=== PATIENT | male | born 1945 | race Caucasian/White ===

== ENCOUNTER → 2017-06-24 | Outpatient (CLI) | payer OTHER ==
[~2017-06-24] MED LIST: ANTACID PO; ATORVASTATIN CA40 MG PO; NABUMETONE 500500 M1 PO; NORCO 10-325 T1 EACH PO; NORVASC10 MG PO; PERCOCET 7.5-31 EAC1 PO; PERCOCET 7.5-31 EACH PO; TOPROL XL50 MG PO
--- NOTE | 2017-06-26 09:59 | PAINCON ---
[address] [address] PAIN MANAGEMENT CONSULTATION Name: CHARANJIT CHRISTOPHER SR [id number] Admission: 06/24/17 Attend Phys: Sadie Jones Discharge: Date of : 49 Report #: [id number] THIS REPORT FOR: //name// CC: FAM unknown Rod Reno DATE OF SERVICE: 06/24/2017 The patient is a 72-year-old gentleman being treated for chronic pain secondary to multiple surgeries on left ankle. He has chronic pain requiring high risk complex medication management. He has been stable on Percocet 7.5/325 up to 3 a day. He returns to pain clinic today noting pain is about 8 on Visual Analog Scale. He notes that cold weather has made pain a little bit worse, but otherwise he is participating in activities of daily living. Again, rates his pain an 8 on Visual Analog Scale. PHYSICAL EXAMINATION: VITAL SIGNS: Shows 5 feet 9 inches, 184 pound gentleman, BMI is 27.3 kilograms per meter squared. Blood pressure 150/83, pulse 103, respirations 16. NEUROLOGIC: Alert to person, place and time, judged to be a reasonable historian. Rises from chair using armrest, modestly antalgic gait. Ankle flexion and extension is limited to about 30 degrees. Significantly impacted compared to the contralateral right ankle, which has full range of motion. We reviewed the fact that opiate medications are being used to provide analgesia adequate to support activities of daily living, not attempting to achieve a specific pain score on the 0-10 Visual Analog Scale. The current opiate medications are providing sufficient analgesia to allow the patient to participate in activities of daily living. The patient is not exhibiting any aberrant behavior suggestive of drug diversion. The patient is not having any adverse reactions to medications. The patient is not suffering from daytime somnolence or mental acuity changes. The patient is managing opiate-induced constipation with appropriate egxb-oeb-rlfiusg agents and dietary considerations. The patient was counseled on concern for caution with operating a motor vehicle while using opiate medications. A physical exam was performed and the patient's functional status was evaluated. All patients with back pain were advised against the bed rest greater than 4 days and were advised to return to normal activities. Pain score assessment was noted and the treatment plan was reviewed with the patient. All current medications, both prescribed and OTC were reviewed and reconciled on the electronic medical record. Tobacco screening was accomplished and smoking cessation was advised when indicated. BMI was noted and diet/exercise modification was recommended for all patients [place] [address] PAIN MANAGEMENT CONSULTATION Name: CHARANJIT CHRISTOPHER [facility] [id number] Admission: 06/24/17 Attend Phys: Sadie Jones Discharge: Date of : 49 Report #: [id number] parameters. I reviewed with the patient today their responsibilities to safeguard prescription medications, reviewed their responsibility to utilize medications only as prescribed by the physician. They are to seek and receive pain medications only from 1 physician group ( [facility]). They are to use 1 pharmacy and keep the clinic informed if they change pharmacies. Their responsibilities include making followup visits in a timely fashion and to avoid abrupt discontinuation of medication usage. Their responsibilities further include bringing their medications (bottles from the pharmacy with residual pills) to the visit for possible confirmation of pill counts and the patient understands it is their responsibility to submit to random drug screens to ensure both that the medications prescribed are present, and that no other controlled substances are present. All prescriptions provided today were generated electronically. ASSESSMENT: Chronic left ankle pain requiring high risk complex medication management status post multiple surgeries. He is stable on baseline medication. Last random drug screen on 04/29/2017 was positive for prescribed medications. RECOMMENDATION: Continue Percocet 7.5/325 t.i.d. for breakthrough pain, encouraged lowest usage possible. Follow up in 2 months for reevaluation, will bring pills for pill count at that time. <ELECTRONICALLY SIGNED> By: Rod Reno DO 06/26/17 0959 [id number] Reno DO /shantell
== END ==
LOC: M.PC 02:33
DX: G89.29 Other chronic pain (principal); M25.571 Pain in right ankle and joints of right foot; Z79.899 Other long term (current) drug therapy; Z98.890 Other specified postprocedural states

== ENCOUNTER → 2017-08-19 | Outpatient (CLI) | payer OTHER ==
--- NOTE | 2017-08-26 07:59 | PAINCON ---
[facility] [address] [place] [address] PAIN MANAGEMENT CONSULTATION Name: CHARANJIT CHRISTOPHER SR [id number] Admission: 08/19/17 Attend Phys: Sadie Jones Discharge: Date of : 49 Report #: [id number] THIS REPORT FOR: //name// CC: FAM unknown Rod Reno DATE OF SERVICE: 08/19/2017 HISTORY OF PRESENT ILLNESS: The patient is a 72-year-old gentleman being treated for chronic pain syndrome status post multiple surgeries, right ankle, requiring complex medication management. Last seen in the pain clinic on 06/24/2017, continued on Percocet 7.5/325 up to 3 a day. Returns to the pain clinic today noting medication continues to provide sufficient analgesia to participate in activities of daily living. Uses a cane in the right hand nearly 100% of the time when ambulating. Prior random drug screen in April was positive for prescribed medications and no others. We reviewed the fact that opiate medications are being used to provide analgesia adequate to support activities of daily living, not attempting to achieve a specific pain score on the 0-10 Visual Analog Scale. The current opiate medications are providing sufficient analgesia to allow the patient to participate in activities of daily living. The patient is not exhibiting any aberrant behavior suggestive of drug diversion. The patient is not having any adverse reactions to medications. The patient is not suffering from daytime somnolence or mental acuity changes. The patient is managing opiate-induced constipation with appropriate zofd-hsd-enuxpsd agents and dietary considerations. The patient was counseled on concern for caution with operating a motor vehicle while using opiate medications. A physical exam was performed and the patient's functional status was evaluated. All patients with back pain were advised against the bed rest greater than 4 days and were advised to return to normal activities. Pain score assessment was noted and the treatment plan was reviewed with the patient. All current medications, both prescribed and OTC were reviewed and reconciled on the electronic medical record. Tobacco screening was accomplished and smoking cessation was advised when indicated. BMI was noted and diet/exercise modification was recommended for all patients following outside normal parameters. I reviewed with the patient today their responsibilities to safeguard prescription medications, reviewed their responsibility to utilize medications only as prescribed by the physician. They are to seek and receive pain medications only from 1 physician group ( [facility]). They are to use 1 pharmacy and keep the clinic informed if they change pharmacies. Their responsibilities include making followup visits in a [place] [address] PAIN MANAGEMENT CONSULTATION Name: CHARANJIT CHRISTOPHER SR [facility]: [facility]#: [id number] Admission: 08/19/17 Attend Phys: Sadie Jones Discharge: Date of : 49 Report #: [id number] abrupt discontinuation of medication usage. Their responsibilities further include bringing their medications (bottles from the pharmacy with residual pills) to the visit for possible confirmation of pill counts and the patient understands it is their responsibility to submit to random drug screens to ensure both that the medications prescribed are present, and that no other controlled substances are present. All prescriptions provided today were generated electronically. PHYSICAL EXAMINATION: GENERAL: Shows a pleasant 72-year-old gentleman, BMI is 28.6 kilograms per meter squared. He does not use tobacco products. Subjective pain score is 7-8 on a VAS. VITAL SIGNS: Blood pressure 151/74, pulse 83, respirations 16, room air oxygen saturation 95%. MUSCULOSKELETAL: Rises from chair using the armrest. Limited range of motion, left ankle. Moderately antalgic gait. Using a cane in the right hand. ASSESSMENT: Symptomatic chronic pain syndrome, left ankle, status post multiple surgeries, requiring complex medication management, stable on baseline medication. RECOMMENDATION: Renew Percocet 7.5/325 up to 3 a day, taken the liberty of writing for 2 months of current medication. We did obtain a buccal random drug swab today. No aberrant behavior suggestive for drug diversion, simply complying with opiate consent to treat contract. <ELECTRONICALLY SIGNED> By: Rod Reno DO 08/26/17 0759 1408 [id number] Reno DO /nt
== END ==
LOC: M.PC 04:53
DX: M25.572 Pain in left ankle and joints of left foot (principal); G89.4 Chronic pain syndrome

== ENCOUNTER → 2017-10-14 | Outpatient (CLI) | payer OTHER ==
--- NOTE | 2017-10-19 08:35 | PAINCON ---
[address] [address] PAIN MANAGEMENT CONSULTATION Name: CHARANJIT CHRISTOPHER SR [id number] Admission: 10/14/17 Attend Phys: Sadie Jones Discharge: Date of : 49 Report #: [id number] THIS REPORT FOR: //name// CC: FAM unknown Rod Reno DATE OF SERVICE: 10/14/2017 PAIN CLINIC NOTE SUBJECTIVE: The patient is a pleasant 72-year-old gentleman being treated for chronic right ankle pain, status post multiple surgeries, requiring complex medication management. Last seen in pain clinic on 08/19/2017. Uses a cane in his right hand, utilizes Percocet for pain 7.5/325 up to 3 a day. We had reviewed the opiate consent to treat contract today. He has been a patient at our service since 10/2016. He notes medications provide sufficient analgesia to participate in activities of daily living though he still rates his pain as 7-8 on a VAS. Pain is exacerbated with standing, walking and bending. He has moderate decreased range of motion in the left ankle. PHYSICAL EXAMINATION: Shows 5 feet 9 inches, 189 pounds gentleman, BMI is 28.2 kg/m2, blood pressure 145/77, pulse 85, respirations are 18. Alert and oriented to person, place and time, judged to be a reasonable historian. Upper extremity strength is preserved. Rises from chair using armrest, modestly antalgic gait, again slight decreased range of motion of left ankle with ongoing hyperpathia, allodynia and pain in his ankle. We reviewed the fact that opiate medications are being used to provide analgesia adequate to support activities of daily living, not attempting to achieve a specific pain score on the 0-10 Visual Analog Scale. The current opiate medications are providing sufficient analgesia to allow the patient to participate in activities of daily living. The patient is not exhibiting any aberrant behavior suggestive of drug diversion. The patient is not having any adverse reactions to medications. The patient is not suffering from daytime somnolence or mental acuity changes. The patient is managing opiate-induced constipation with appropriate hkht-dbl-wmwfpvg agents and dietary considerations. The patient was counseled on concern for caution with operating a motor vehicle while using opiate medications. A physical exam was performed and the patient's functional status was evaluated. All patients with back pain were advised against the bed rest greater than 4 days and were advised to return to normal activities. Pain score assessment was noted and the treatment plan was reviewed with the patient. All current medications, both prescribed and OTC were reviewed and reconciled on the electronic medical record. Tobacco screening was accomplished and smoking cessation was advised when indicated. BMI was noted and diet/[place] [address] PAIN MANAGEMENT CONSULTATION Name: CHARANJIT CHRISTOPHER Room: [facility]#: [id number] Admission: 10/14/17 Attend Phys: Sadie Jones Discharge: Date of : 49 Report #: [id number] modification was recommended for all patients following outside normal parameters. I reviewed with the patient today their responsibilities to safeguard prescription medications, reviewed their responsibility to utilize medications only as prescribed by the physician. They are to seek and receive pain medications only from 1 physician group ([facility]). They are to use 1 pharmacy and keep the clinic informed if they change pharmacies. Their responsibilities include making followup visits in a timely fashion and to avoid abrupt discontinuation of medication usage. Their responsibilities further include bringing their medications (bottles from the pharmacy with residual pills) to the visit for possible confirmation of pill counts and the patient understands it is their responsibility to submit to random drug screens to ensure both that the medications prescribed are present, and that no other controlled substances are present. All prescriptions provided today were generated electronically. ASSESSMENT: Chronic pain, right ankle, status post multiple surgeries, requiring complex medication management, stable on Percocet 7.5/325 one tablet up to 3 times a day. We did attempt to obtain a random drug screen at last visit, though we cannot find it on the chart. The patient did not remember the procedure, hence we did order a buccal swab today. No aberrant behavior suggestive of drug diversion, simply complying with our opiate consent to treat contract. Prior opiate consent to treat contract had been signed back in 08/2013. Again, we did review this today. I did inform the patient that I will be leaving the practice. We will endeavor to find another physician to manage his current medication, noting that he has had a very reasonable opiate load while under 15 mg morphine equivalent (closer to 30 mg morphine equivalent daily). Follow up in 2 months for reevaluation. <ELECTRONICALLY SIGNED> By: Rod Reno DO 10/19/17 0835 1345 [id number] Reno DO /nt
== END ==
LOC: M.PC 02:59
DX: M25.571 Pain in right ankle and joints of right foot (principal); Z79.899 Other long term (current) drug therapy

== ENCOUNTER → 2017-12-09 | Outpatient (CLI) | payer OTHER ==
--- NOTE | 2017-12-10 07:27 | PAINCON ---
[facility] [address] [place] [address] PAIN MANAGEMENT CONSULTATION Name: CHARANJIT CHRISTOPHER SR [facility] [id number] Admission: 12/09/17 Attend Phys: Sadie Jones Discharge: Date of : 49 Report #: [id number] THIS REPORT FOR: //name// CC: FAM unknown Rod Reno DATE OF SERVICE: 12/09/2017 The patient is an extremely pleasant 72-year-old gentleman being treated for chronic right ankle pain, status post multiple surgeries, requiring complex medication management. Last seen in pain clinic 10/14/2017. Continues Percocet 7.5/325 three a day with ongoing efficacy. Last random drug screen at last visit was positive for prescribed medications. He returns to pain clinic today noting that medications continue to provide sufficient analgesia to participate in activities of daily living. However, he does have pain that escalates up to a 10 on a VAS with activity. PHYSICAL EXAMINATION: Shows pleasant 72-year-old gentleman, 5 feet 9 inches tall, 198 pounds, BMI is 28.2 kilograms per meter squared. Blood pressure 153/86, pulse 74, respirations of 16. Rises from chair using armrest, uses a cane in his right hand. Does have diminished range of motion of the left ankle, left plantar flexion and dorsiflexion. Side range of motion is dramatically limited. We reviewed the fact that opiate medications are being used to provide analgesia adequate to support activities of daily living, not attempting to achieve a specific pain score on the 0-10 Visual Analog Scale. The current opiate medications are providing sufficient analgesia to allow the patient to participate in activities of daily living. The patient is not exhibiting any aberrant behavior suggestive of drug diversion. The patient is not having any adverse reactions to medications. The patient is not suffering from daytime somnolence or mental acuity changes. The patient is managing opiate-induced constipation with appropriate edop-mdb-evrdrmi agents and dietary considerations. The patient was counseled on concern for caution with operating a motor vehicle while using opiate medications. A physical exam was performed and the patient's functional status was evaluated. All patients with back pain were advised against the bed rest greater than 4 days and were advised to return to normal activities. Pain score assessment was noted and the treatment plan was reviewed with the patient. All current medications, both prescribed and OTC were reviewed and reconciled on the electronic medical record. Tobacco screening was accomplished and smoking cessation was advised when indicated. BMI was noted and diet/exercise modification was recommended for all patients following outside normal parameters. I reviewed with the [place] [address] PAIN MANAGEMENT CONSULTATION Name: CHARANJIT CHRISTOPHER [facility] [id number] Admission: 12/09/17 Attend Phys: Sadie Jones Discharge: Date of : 49 Report #: [id number] prescription medications, reviewed their responsibility to utilize medications only as prescribed by the physician. They are to seek and receive pain medications only from 1 physician group ( [facility]). They are to use 1 pharmacy and keep the clinic informed if they change pharmacies. Their responsibilities include making followup visits in a timely fashion and to avoid abrupt discontinuation of medication usage. Their responsibilities further include bringing their medications (bottles from the pharmacy with residual pills) to the visit for possible confirmation of pill counts and the patient understands it is their responsibility to submit to random drug screens to ensure both that the medications prescribed are present, and that no other controlled substances are present. All prescriptions provided today were generated electronically. Long discussion with the patient today about therapeutic options. He has been stable on Percocet 7.5/325, but with increasing pain, we have elected to increase the dose slightly, we will increase from 90-105 tablets, i.e., 1 tablet 3 or 4 times a day. ASSESSMENT: Symptomatic chronic pain syndrome requiring complex medication management, status post multiple surgeries, left ankle, left ankle pain. RECOMMENDATIONS: Continue Percocet 7.5/325, limit #105 tablets for 30 days. I have taken the liberty of writing for prescriptions to release today and in 4 weeks, follow up with Dr. Niranjan Hines for ongoing management. <ELECTRONICALLY SIGNED> By: Rod Reno DO 12/10/17 0727 1407 [id number] Reno DO /nt
== END ==
LOC: M.PC 04:59
DX: M25.572 Pain in left ankle and joints of left foot (principal); G89.4 Chronic pain syndrome; Z79.899 Other long term (current) drug therapy

== ENCOUNTER → 2018-02-04 | Outpatient (CLI) | payer OTHER ==
--- NOTE | 2018-02-10 16:41 | PAINCON ---
[facility] [address] [place] [address] PAIN MANAGEMENT CONSULTATION Name: CHARANJIT CHRISTOPHER SR [facility] [id number] Admission: 02/04/18 Attend Phys: Jessica Hines MD Discharge: Date of : 49 Report #: [id number] THIS REPORT FOR: //name// CC: DIAZ Hines DATE OF SERVICE: 02/04/2018 CHIEF COMPLAINT: Chronic pain. The patient has been seen in the pain clinic by Dr. Rod Reno. HISTORY OF PRESENT ILLNESS: The patient is a 72-year-old gentleman who has been followed because of chronic right ankle pain. The patient has had multiple surgeries. He states that he was on a rough fell about 8 feet some time ago, fractured his ankle. Since that time, he has had quite a bit of pain and discomfort. He has lost movement and has about all lateral movement gone and about 60% of flexion and extension in his foot. He rates his pain as a 7/10 today. Notes that the pain can worsen. He is very sensitive to weather changes. Today is raining and has noted uptake in his pain. Walks with a cane. We would like to continue with his current medications of OxyContin 7.5 mg, which he takes 3-4 times daily. He states that he is taking his medications as prescribed. He has seen in the news the problems with use of opioid medications. He is aware that opioid medications can cause addiction. Also, they may lose their effectiveness secondary to development of tolerance. Feels his medications are working reasonably well. Do not have any bowel or bladder dysfunction. He is able to think clearly with their use. He has returned today for renewal of medication. ALLERGIES: PENICILLIN, BEE STINGS, TRAMADOL, ZOSYN, PIPERACILLIN. MEDICATIONS: OxyContin, oxycodone 7.5 mg 1-4 p.o. daily and Antacid. PAST MEDICAL HISTORY: Rheumatic fever, scarlet fever, hypertension, arthritis, stomach problems and elevated cholesterol. PAST SURGICAL HISTORY: Hernia repair, intestinal impaction, and left ankle after a fall. SOCIAL HISTORY: He is retired. REVIEW OF SYSTEMS: Generally good health, swelling of his ankle and feet. Wakes at night to urinate, joint pain, joint stiffness, difficulty walking. LABORATORY DATA: No new laboratory values are available [place] [address] PAIN MANAGEMENT CONSULTATION Name: CHARANJIT CHRISTOPHER SR Room: [facility]#: [id number] Admission: 02/04/18 Attend Phys: Jessica Hines MD Discharge: Date of : 49 Report #: [id number] PAIN CLINIC ASSESSMENT: 1. Left ankle osteoarthritic changes after fallen significant screws and plates in the ankle. 2. Height 5 feet 9 inches, weight 191 pounds, BMI is 28. 3. Vital signs: Blood pressure 157/79, heart rate 74, respiratory rate 16, room air saturation 96%, temperature 97.9. 4. Pain intensity 7/10. 5. Fall risk. The patient has not fallen in the last 3 months. 6. Blood thinner. The patient is not on a blood thinning medication. 7. Hypertension. The patient has not been treated for hypertension. 8. Opioid therapy greater than 6 weeks. The patient gets his opioid medications from one source[facility]. 9. Risk assessment tool. The patient is low for use of opioid medications. 10. Functional assessment tool. 11. Recreational drug use. The patient denies use of recreational drugs. 12. Tobacco: The patient denies use of tobacco. 13. Alcohol: The patient denies use of alcohol. PHYSICAL EXAMINATION: GENERAL: The patient is a well-developed, well-nourished white male, appears his stated age. He is alert and oriented x 3. Affect is appropriate. Speech is fluent. HEENT: Normocephalic, atraumatic. Extraocular eye muscles intact. Sclerae nonicteric. Mucous membranes are moist. NECK: Without JVD or adenopathy. LUNGS: Clear to auscultation. ABDOMEN: Positive bowel sounds. The patient without significant scoliosis, kyphosis or lordosis. The patient has pain and discomfort in the left ankle. Muscle strength to the left lower extremity 5-/5, right lower extremity 5/5 strength. The patient walks with an antalgic gait because of the pain and discomfort in his left leg. Uses a cane to help with ambulation, uses hands to get up from the seated position. IMPRESSION: 1. Chronic pain involving the left foot and ankle, status post fracture after a fall. 2. Rheumatic fever. 3. Scarlet fever. 4. Hypertension. 5. Arthritis. 6. Stomach problems. 7. Elevated cholesterol. RECOMMENDATIONS: We discussed treatment options with the patient. Risks and benefits of these medications were discussed. We will renew his medication for [address] [place] [address] PAIN MANAGEMENT CONSULTATION Name: CHARANJIT CHRISTOPHER SR Room: [facility]#: [id number] Admission: 02/04/18 Attend Phys: Jessica Hines MD Discharge: Date of : 49 Report #: [id number] the next 2 months. A script for oxycodone 7.5 mg 1 p.o. q.4-6h., total 105 tablets have been dispensed. The patient will call us if he has any problem with his medications. We would like to thank you for letting us participate in his care. We hope he continues to improve. <ELECTRONICALLY SIGNED> By: Jessica Hines MD 02/10/18 1641 1700 0301N. Niranjan Hines MD /nt
== END ==
LOC: M.PC 03:20
DX: M79.672 Pain in left foot (principal); G89.29 Other chronic pain; I10 Essential (primary) hypertension; E78.00 Pure hypercholesterolemia, unspecified; M19.90 Unspecified osteoarthritis, unspecified site; I00 Rheumatic fever without heart involvement; A38.9 Scarlet fever, uncomplicated

== ENCOUNTER → 2018-04-01 | Outpatient (CLI) | payer OTHER ==
--- NOTE | 2018-04-28 16:08 | PAINCON ---
[address] [address] PAIN MANAGEMENT CONSULTATION Name: CHARANJIT CHRISTOPHER SR Room: [facility] HeatherNeo#: [id number] Admission: 04/01/18 Attend Phys: Jessica Hines MD Discharge: Date of : 49 Report #: [id number] THIS REPORT FOR: //name// CC: DIAZ physician/PCP Jessica Hines DATE OF SERVICE: 04/01/2018 CHIEF COMPLAINT: Left foot and ankle pain. HISTORY OF PRESENT ILLNESS: The patient is a 73-year-old gentleman who has been followed in the Pain Clinic. He has a history of right ankle pain. He has had multiple surgeries. The patient injured it after falling through the roof of a building. At that time, he fractured his ankle. He has continued to have pain and discomfort. He has lost movement in the ankle. He has 60% flexion and extension in the foot. He rates the pain as 7-8 today. The weather has changed; it has gone from the 60s to 28. He continues to walk with his cane. He finds that OxyContin 7.5 mg three to four times daily is helpful. He has used the oxycodone provided by his pharmacy. This last formulation was different from that which he had gotten in the past. He felt that the last dosing was not as near as effective. He would like to continue with previous formulations of Percocet. We have called his pharmacy and they have given us numbers. The pill number by Sandi was quoted to us. We have written this on the prescription. Hopefully, he finds these medications more helpful. The patient has had some problems with his prostate. PSA studies have been ongoing. He has noticed an uptake in the PSA. He was felt to have prostate cancer at this juncture. He is scheduled to undergo treatment with possible placement of radiation seeds in the prostate in the next month or so. He has started hormone therapy. Overall, things are going reasonably well and he would like to have his medications renewed. ALLERGIES: PENICILLIN, BEE STINGS, TRAMADOL, ZOSYN, PIPERACILLIN. CURRENT MEDICATIONS: OxyContin, oxycodone 7.5 mg one to four tablets p.o. daily, antacid. PAIN CLINIC ASSESSMENT/PQRS: 1. Left ankle osteoarthritis with changes status post screws and plates in place in the ankle. 2. Rheumatoid arthritis: The patient is not being treated for rheumatoid arthritis. 3. Height 5 feet 9 inches, weight 192 pounds, BMI is 28. 4. Vital signs: Blood pressure is 161/75, heart rate 69, respiratory rate 18, room air saturation is 96%, temperature 97.8. 5. Pain intensity: 7-8/10[place] [address] PAIN MANAGEMENT CONSULTATION Name: CHARANJIT CHRISTOPHER Room: [facility]#: [id number] Admission: 04/01/18 Attend Phys: Jessica Hines MD Discharge: Date of : 49 Report #: [id number] 6. Fall risk: The patient has not fallen in the last 3 months. 7. Blood thinner: The patient is not on a blood thinning medication. 8. Hypertension: The patient is not being treated for hypertension. 9. Opioid therapy greater than 6 weeks: The patient receives his medications from one source, the Pain Clinic. 10. Functional assessment tool: Low for opioid use. 11. Recreational drug use: The patient denies use of recreational drugs. 12. Tobacco: The patient denies use of tobacco. 13. Alcohol: The patient denies use of alcoholic beverages. PHYSICAL EXAMINATION: GENERAL: The patient is a well-developed, well-nourished white male. He appears his stated age. He is alert and oriented x 3. Affect is appropriate. Speech is fluent. HEENT: Normocephalic, atraumatic. Extraocular eye muscles intact. Sclerae nonicteric. NECK: Without JVD or adenopathy. LUNGS: Clear to auscultation. ABDOMEN: Positive bowel sounds, nontender. MUSCULOSKELETAL: Without significant scoliosis, kyphosis, or lordosis. The patient has some pain and discomfort in the left ankle. He walks with use of a cane. Muscle strength on the left side is approximately 5-/5, right 5/5. The patient has antalgic gait. He complains of pain and discomfort in the ankle. He moves from the sitting to the standing position using his hands. IMPRESSION: 1. Chronic pain involving the left foot and ankle status post fracture after a fall through the roof of a building. 2. Rheumatic fever. 3. Scarlet fever. 4. Hypertension. 5. Arthritis. 6. Development of prostate cancer. 7. Elevated cholesterol. RECOMMENDATIONS: We discussed treatment options with the patient. At this juncture, he feels that the current Percocet tablets were not as efficacious. He has a capsule. Numbers are written on it. We have relayed those to the pharmacy. The patient has been encouraged to take a picture of these numbers so that he would have them available in the future. The patient also has been asked to take a picture of the pill. He can then check with the pharmacy before prior to leaving the pharmacy to ensure that he has one that he feels is most efficacious. He will undergo radiation treatment with seeds placed in the prostate in 04/2018. He will call us if [place] [address] PAIN MANAGEMENT CONSULTATION Name: CHARANJIT CHRISTOPHER Room: [facility]#: [id number] Admission: 04/01/18 Attend Phys: Jessica Hines MD Discharge: Date of : 47 Report #: [id number] We would like to thank you for letting us participate in his care. We hope he continues to improve. <ELECTRONICALLY SIGNED> By: Jessica Hines MD 04/28/18 1608 [id number]. Niranjan Hines MD /nt
== END ==
LOC: M.PC 05:28
DX: M25.572 Pain in left ankle and joints of left foot (principal); G89.29 Other chronic pain; I10 Essential (primary) hypertension; M19.90 Unspecified osteoarthritis, unspecified site; E78.5 Hyperlipidemia, unspecified; I00 Rheumatic fever without heart involvement; A38.9 Scarlet fever, uncomplicated; C61 Malignant neoplasm of prostate; Z79.899 Other long term (current) drug therapy

== ENCOUNTER → 2018-06-03 | Outpatient (CLI) | payer OTHER ==
[~2018-06-03] MED LIST changes: +DOXEPIN 10 MG C10 M1 PO
--- NOTE | ~2018-06-03 | PAINCON ---
[address] [address] PAIN MANAGEMENT CONSULTATION Name: CHARANJIT CHRISTOPHER SR Room: [facility] HeatherNeo#: [id number] Admission: 06/03/18 Attend Phys: Jessica Hines MD Discharge: Date of : 49 Report #: [id number] THIS REPORT FOR: //name// CC: DIAZ physician/PCP Jessica Hines ____ ____ DATE OF SERVICE: 06/03/2018 CHIEF COMPLAINT: Left ankle and foot pain. HISTORY: The patient is a 73-year-old gentleman, who has been followed in the pain clinic. He has history of right ankle pain. He has had multiple surgeries on the ankle. He was injured after falling off a roof. He continues to have pain, which is problematic. He has managed movement in his ankle. He notes about 60% flexion and extension of his foot. He rates his pain as an 8-10 in pain today. He has noted weather has changed, it is somewhat cold outside. He does walk and ambulate with use of a cane. He has been experiencing some new piercing, tingling, pain sensation, which radiates to his ankle. Sometimes these are problematic at night. He has his leg hanging off the table in certain positions. Sometimes the pain is so problematic and awakens him from sleep at night. Only able to sleep 2-3 hours before onset of this pain and discomfort. Overall, feels that things are about 40% better with use of his current medical regimen. He feels that the oxycodone has been beneficial. CURRENT MEDICATIONS: The patient is on OxyContin, oxycodone 7.5 mg 1 tablet-4 tablets p.o. daily, and acid. ALLERGIES: THE PATIENT IS ALLERGIC TO PENICILLIN, BEE STINGS, TRAMADOL, ZOSYN, AND PIPERACILLIN. PAIN CLINIC ASSESSMENT AND PQRS: 1. Left ankle osteoarthritis changes, status post screws and plates placed in his ankle. 2. Rheumatoid arthritis. The patient is not being treated for rheumatoid arthritis. 3. Pain score is 8/10. 4. Fall history: The patient has not fallen in the last 3 months. 5. Blood thinner. The patient is not on a blood thinning medication. 6. Hypertension. The patient is not being treated for hypertension. 7. Opioids greater than 6 weeks. The patient receives this medication from one source, the pain clinic. 8. Functional assessment tool, low for opioid use. 9. Recreational drug use. The patient denies use of recreational drugs. 10. Tobacco: The patient denies use of tobacco. 11. Alcohol: The patient [place] [address] PAIN MANAGEMENT CONSULTATION Name: CHARANJIT CHRISTOPHER SR [id number] Admission: 06/03/18 Attend Phys: Jessica Hines MD Discharge: Date of : 49 Report #: [id number] PHYSICAL EXAMINATION: GENERAL: The patient is a well-developed, well-nourished white male. He appears his stated age. He is alert and oriented x 3. His affect is appropriate. Speech is fluent. Height is 5 feet 9 inches, weight is 193 pounds, and BMI is 28.5. VITAL SIGNS: Blood pressure is 144/98, heart rate is 102, respiratory rate is 16, room air saturation is 96%, temperature is 98.0. HEENT: Normocephalic, atraumatic. Extraocular eye muscles intact. Sclerae nonicteric. NECK: Without adenopathy or JVD. LUNGS: Clear to auscultation without rhonchi. ABDOMEN: Positive bowel sounds, nontender. MUSCULOSKELETAL: Without significant scoliosis, kyphosis, or lordosis. The patient has some pain and discomfort in the left ankle. He walks and uses a cane. Muscle strength in the left side is approximately 5-/5 and 5/5 on the right. The patient moves from a sitting to a standing position using his hands. IMPRESSION: 1. Chronic pain involving the left foot and ankle, status post fracture after a fall with instrumentation in the ankles. 2. History of rheumatic fever. 3. History of scarlet fever. 4. Hypertension. 5. Arthritis. 6. Development of prostatic cancer. 7. Elevated cholesterol. RECOMMENDATIONS: We have discussed treatment options with the patient. At this juncture, we will continue with his current medication regimen. He feels that this medications are helpful and enable him to be active and he is able to engage in activities of daily living. The patient will call if he has any concerns. A script for all of his medications have been provided. The patient will keep his medications in a guarded area. We have discussion about opioids and their benefits as well as the risks, these could include but are not limited to development of addiction as well as less efficacy from the medication secondary to development of tolerance. We would like to thank you for letting us to participate in his care. We hope he continues to improve. By: [id number]. Niranjan Hines MD /SIMEON
== END ==
LOC: M.PC 01:39
DX: M25.572 Pain in left ankle and joints of left foot (principal); M79.672 Pain in left foot; I10 Essential (primary) hypertension; M19.90 Unspecified osteoarthritis, unspecified site; E78.00 Pure hypercholesterolemia, unspecified; C61 Malignant neoplasm of prostate; Z86.19 Personal history of other infectious and parasitic diseases; W19.XXXA Unspecified fall, initial encounter

== ENCOUNTER → 2018-08-05 | Outpatient (CLI) | payer OTHER ==
--- NOTE | ~2018-08-05 | PAINCON ---
[address] [address] PAIN MANAGEMENT CONSULTATION Name: CHARANJIT CHRISTOPHER SR Room: [facility] DannielleAugustine#: [id number] Admission: 08/05/18 Attend Phys: Jessica Hines MD Discharge: Date of : 49 Report #: [id number] THIS REPORT FOR: //name// CC: Christiano Hines DATE OF SERVICE: 08/05/2018 CHIEF COMPLAINT: Here for medication renewal. HISTORY OF PRESENT ILLNESS: The patient is a 73-year-old gentleman. He has been followed in the Pain Clinic. He has a history of right ankle pain. As you may recall, he has had multiple surgeries on his ankle. He injured it after falling off a roof. Pain continues to be problematic. He has been treated with medical management using opioid medication and complex medical management. He feels his pain overall is about 30-40% improved with his current medication today. He continues to walk with a cane. He notes that because of the cold weather that we have been experiencing and the waxing and waning of the weather pattern, he has noticed some increasing pain in his ankle. Describes it as problematic when he is standing, walking as well as with doing regular activities. He feels that his medication as well as heat are beneficial. He has had no complications with his medications. He has used doxepin and feels that it is working well, but only takes it on occasion. He has returned today with the desire to undergo renewal of his medications. ALLERGIES: PENICILLIN, BEE STINGS, TRAMADOL, ZOSYN, PIPERACILLIN. CURRENT MEDICATIONS: OxyContin, oxycodone 7.5 mg 1 tablet p.r.n. as directed. PAIN CLINIC ASSESSMENT AND PQRS: 1. Left ankle osteoarthritis with changes, status post screws and plate placements in the ankle. The patient is not being treated for rheumatoid arthritis. 2. Height 5 feet 9 inches, weight 175 pounds, BMI is 25.9. 3. Vital signs: Blood pressure 145/81, heart rate 90, respiratory rate 16, room air saturation 97%, temperature 98.1. 4. Pain intensity: /10. 5. Fall risk: The patient has not fallen in the last 3 months. 6. Blood thinner: The patient is not on a blood thinning medication. 7. Hypertension: The patient is not being treated for hypertension. 8. Opioids greater than 6 weeks: The patient receives his medication from one source from pain Clinic. 9. Risk assessment tool: Low for opioid use. 10. Recreational drug use: The patient denies use of recreational drugs. 11. Tobacco: The patient denies use of tobacco. 12. Alcohol: The patient [place] [address] PAIN MANAGEMENT CONSULTATION Name: CHARANJIT CHRISTOPHER SR Room: [facility]#: [id number] Admission: 08/05/18 Attend Phys: Jessica Hines MD Discharge: Date of : 49 Report #: [id number] PHYSICAL EXAMINATION: GENERAL: The patient is a well-developed, well-nourished, white male. Appears his stated age. He is alert and oriented x 3. His affect is appropriate. Speech is fluent. HEENT: Normocephalic, atraumatic. Extraocular eye muscles are intact. Sclerae nonicteric. Mucous membranes are moist. NECK: Without adenopathy or JVD. LUNGS: Clear to auscultation without rhonchi or rales. ABDOMEN: Bowel sounds present, nontender. MUSCULOSKELETAL: Without significant scoliosis, kyphosis or lordosis. The patient does have pain and discomfort in the left ankle. He walks with a cane. He has an antalgic gait. He rates his left-sided muscle strength as 5-/5 and on the right 5/5. The patient uses hands to go from a sitting position to a standing position before ambulating. IMPRESSION: 1. Chronic pain involving the left ankle and foot, status post fracture with instrumentation in the ankle. 2. History of rheumatic fever. 3. History of scarlet fever. 4. Hypertension. 5. Arthritis. 6. Development of prostate cancer. 7. Elevated cholesterol. RECOMMENDATIONS: We discussed treatment options with the patient. At this juncture, we will continue with his current medications. A script for his oxycodone 7.5 mg 1 p.o. t.i.d./q.i.d. have been written, 105 tablets have been written for. The patient will also continue with ____ 4 weeks from now with an additional script that has been provided. He will call us if he has any concerns. We would like to thank you for letting us participate in his care. We hope he continues to improve. By: [id number]. Niranjan Hines MD /shantell
== END ==
LOC: M.PC 09:40
DX: S82.892D Other fracture of left lower leg, subsequent encounter for closed fracture with routine healing (principal); G89.29 Other chronic pain; M19.90 Unspecified osteoarthritis, unspecified site; I10 Essential (primary) hypertension; E78.00 Pure hypercholesterolemia, unspecified; C61 Malignant neoplasm of prostate; Z86.19 Personal history of other infectious and parasitic diseases; Z79.899 Other long term (current) drug therapy; X58.XXXD Exposure to other specified factors, subsequent encounter

== ENCOUNTER → 2018-09-30 | Outpatient (CLI) | payer OTHER ==
--- NOTE | 2018-10-01 13:10 | PAINCON ---
[address] [address] PAIN MANAGEMENT CONSULTATION Name: CHARANJIT CHRISTOPHER SR Room: [facility] DannielleAugustine#: [id number] Admission: 09/30/18 Attend Phys: Jessica Hines MD Discharge: Date of : 49 Report #: [id number] THIS REPORT FOR: //name// CC: Christiano Hines DATE OF SERVICE: 09/30/2018 CHIEF COMPLAINT: Chronic ankle pain. HISTORY: The patient is a 73-year-old gentleman who has been followed in the Pain Clinic. As you recall, he has a left foot problem. He has a plate in his left foot. Has had pain and discomfort, which has been quite problematic. He finds that his medications of oxycodone and OxyContin are helpful. Feels that overall his pain is about 30-40% improved with his current medical regimen. He injured his ankle some time ago. As you may recall, he fell off a roof. He has continued to have pain and walks with his cane. Notes that the cold weather waxes and wanes and causes worsening of his pain. As the weather pattern this spring has changed becoming warm and vacillating back and forth to cold, he has noticed the worsening of his pain as well. Rates his pain as an 8/10 today. He has noted some increased pain and discomfort in his hands. He feels that he may have some osteoarthritis or rheumatoid arthritis developing in his hands. ALLERGIES: PENICILLIN, BEE STINGS, TRAMADOL, ZOSYN, PIPERACILLIN. CURRENT MEDICATIONS: Percocet 7.5 mg 1 p.o. t.i.d. to q.i.d., doxepin 10 mg at bedtime, the patient recently started on metoprolol for elevated heart rate in the 120s. PAIN CLINIC ASSESSMENT/PQRS: 1. Left ankle pain status post screws and plate placement with chronic pain. The patient has not been treated for rheumatoid arthritis. 2. Height 5 feet 9 inches, weight 179 pounds, BMI is 26.5. 3. Blood pressure 149/77, heart rate 72, respiratory rate 16, room air saturation 96%, temperature is 98.0. 4. Pain intensity 8/10. 5. Fall history: The patient has not fallen in the last 3 months. 6. Blood thinner. The patient is not on a blood thinning medication. 7. Hypertension. The patient is not being treated for hypertension, but is taking metoprolol to help with heart rate. 8. Opioids greater than 6 weeks. The patient receives medications from one source, the pain clinic. 9. Risk assessment tool, low for opioid use. 10. Recreational drug use. The patient denies use of recreational drugs. 11. Tobacco: The patient denies use of tobacco. 12. Alcohol: The patient denies [place] [address] PAIN MANAGEMENT CONSULTATION Name: CHARANJIT CHRISTOPHER SR Room: [facility]#: [id number] Admission: 09/30/18 Attend Phys: Jessica Hines MD Discharge: Date of : 49 Report #: [id number] PHYSICAL EXAMINATION: GENERAL: The patient is a well-developed, well-nourished white male. Appears his stated age. He is alert and oriented x 3. His affect is appropriate. Speech is fluent. HEENT: Normocephalic, atraumatic. Extraocular eye muscles are intact. Sclerae nonicteric. Mucous membranes are moist. NECK: Without adenopathy or JVD. LUNGS: Clear to auscultation without rhonchi or rales. ABDOMEN: Nontender. Bowel sounds are present. MUSCULOSKELETAL: Upper extremity muscle strength 5/5 for the major muscle groups in the upper extremity. The patient has pain and discomfort down his left ankle. Walks with use of a cane. Has an antalgic gait. Muscle strength on the right is 5/5 and 5-/5 for the left lower extremity. He uses hands go from sitting to a standing position before ambulating. IMPRESSION: 1. Chronic pain involving the left ankle, status post fracture with instrumentation of his ankle -- the patient fell from a roof number of years ago. 2. History of rheumatic fever. 3. History of scarlet fever. 4. Hypertension. 5. Arthritis. 6. Development of prostate cancer. 7. Elevated cholesterol. 8. Elevated heart rate, treated with metoprolol recently. RECOMMENDATIONS: We discussed treatment options with the patient. Risks and benefits of opioid medications have been described. We have explained to the patient the possibility of development of addiction. Also, the less effectiveness of opioids over a period of time secondary to development of tolerance. He feels his medications are working reasonably well. He is taking them as prescribed. He is not having any concerns or complications. He has returned today with a desire to renew his medications. A script for his medications of OxyContin 7.5 mg 1 p.o. q.i.d. to t.i.d. have been written, #105 tablets have been provided. A second month of medication has been allocated as well. We would like to thank you for letting us participate in his care. We hope he continues to improve. <ELECTRONICALLY SIGNED> By: Jessica Hines MD 10/01/18 [id number]. Niranjan Hines MD /shantell
== END ==
LOC: M.PC 05:12
DX: G89.29 Other chronic pain (principal); M25.572 Pain in left ankle and joints of left foot; I10 Essential (primary) hypertension; M19.90 Unspecified osteoarthritis, unspecified site; E78.00 Pure hypercholesterolemia, unspecified; Z88.0 Allergy status to penicillin; Z88.8 Allergy status to other drugs, medicaments and biological substances; Z91.030 Bee allergy status; Z79.899 Other long term (current) drug therapy; Z79.891 Long term (current) use of opiate analgesic

== ENCOUNTER → 2018-11-18 | Outpatient (CLI) | payer OTHER ==
[~2018-11-18] MED LIST changes: +STOOL SOFTENER1 EAC2 PO; +TOPROL XL25 MG PO
--- NOTE | ~2018-11-18 | PAINCON ---
[facility] [address] [place] [address] PAIN MANAGEMENT CONSULTATION Name: CHARANJIT CHRISTOPHER SR Room: [facility] SONIA HeatherNeo#: [id number] Admission: 11/18/18 Attend Phys: Jessica Hines MD Discharge: Date of : 47 Report #: [id number] THIS REPORT FOR: //name// CC: Christiano Hines DATE OF SERVICE: 11/18/2018 CHIEF COMPLAINT: "Here for medication renewal because some pain in the left foot and ankle." FOLLOWUP HISTORY: The patient is a 73-year-old gentleman. As you recall, he has been followed in the pain clinic for some time. He has pain, which is chronic. This involves in his left foot. He rates the pain as a 7-8 at this point. He does note some occasional swelling. Today is more swollen than yesterday, but less than others. He states it is sometimes swelling size of a grapefruit. That is when his pain is 10/10. He rates his pain as a 7-8 at this point. He continues to exercise by walking around his property. He has no real change in the pain. As you recall, he has had a fusion of the ankle. He injured it when he fell from a roof years ago. He does walk with a cane. He has noted that the weather pattern, which has been rainy barometric pressure has been oscillating back and forth have all increased his pain and discomfort. He feels his medications are working reasonably well. He keeps his medications in a guarded area. They do not cause any problem with his sensorium. He has not fallen. ALLERGIES: PENICILLIN, BEE STINGS, TRAMADOL, ZOSYN, AND PIPERACILLIN. CURRENT MEDICATIONS: Percocet 7.5 mg t.i.d. to q.i.d., doxepin 10 mg at bedtime. The patient is using metoprolol to help control heart rate. PAIN CLINIC ASSESSMENT: 1. Rest Risk assessment tool. 2. Left ankle pain status post screws and plates with osteoarthritic changes. 3. The patient has not been treated for rheumatoid arthritis. 4. Height 5 feet 9 inches, weight 182 pounds, BMI is 26.8. 5. Vital Signs: Blood pressure 134/70, heart rate 73, respiratory rate 16, room air saturation 95%, temperature 97.9. 6. Pain intensity 8/10. 7. Fall history: The patient has not fallen in the last 3 months. 8. Blood thinner. The patient is not on a blood thinning medication. 9. Hypertension. The patient is not being treated for hypertension, but use metoprolol to help control heart rate. 10. Opioid greater than 6 weeks. The patient has received medication through the pain clinic. 11. Risk assessment tool [place] [address] PAIN MANAGEMENT CONSULTATION Name: CHARANJIT CHRISTOPHER Room: [facility]#: [id number] Admission: 11/18/18 Attend Phys: Jessica Hines MD Discharge: Date of : 47 Report #: [id number] 12. Recreational drug use: The patient denies. 13. Tobacco: The patient denies use of tobacco. 14. Alcohol: The patient denies use of alcoholic beverages. PHYSICAL EXAMINATION: GENERAL: The patient is a well-developed, well-nourished white male. Appears his stated age. He is alert and oriented x 3. His affect is appropriate. Speech is fluent. HEENT: Normocephalic, atraumatic. Extraocular eye muscles intact. Sclerae nonicteric. Mucous membranes are moist. NECK: Without adenopathy or JVD. HEART: Regular rate. History of tachycardia. LUNGS: Clear to auscultation. ABDOMEN: Nontender. Bowel sounds present. MUSCULOSKELETAL: Strength in the upper extremity judged to be 5-/5 for the major muscle groups in the upper extremity. He has pain in his left ankle. This is fused. Walks with use of a cane. Note some swelling in the ankle. He states that when it gets the size of a grapefruit, pain is 10/10. Today, as he feels it is about 30% swollen. He use his hands go from sitting to a standing position before ambulating. IMPRESSION: 1. Chronic left ankle pain, status post fracture with instrumentation and screws, status post fall from a roof many years ago. 2. History of rheumatic fever. 3. History of scarlet fever. 4. Hypertension. 5. Arthritis. 6. Development of prostate cancer. 7. Elevated cholesterol. 8. Elevated heart rate, treat him with metoprolol. RECOMMENDATIONS: We discussed treatment options with the patient. At this juncture, we will continue with his medications. He feels that the medications are helpful. We have had conversations regarding use of opioid medications. We have discussed at 70,000 people last year as a result of opioid use. We have also discussed the possible complications of opioid use. For some patient that may cause dependency. The patient does not feel that he is having any problems with his medications or dependency problems. He does not have any withdrawals. He has taken the medication as prescribed. We have discussed that long-term use of this medication may become less effective secondary to development of tolerance. Overall, things are going reasonably well. He feels his medications are working well. A script for his medications of oxycodone 7.5 mg 1 p.o. q.i.d. have been written. The patient will also continue with the doxepin. We will continue with the patient's medication management of chronic pain with the complex medical regimen that he is on. He will call us if he has [address] [place] [address] PAIN MANAGEMENT CONSULTATION Name: CHARANJIT CHRISTOPHER Room: [facility]#: [id number] Admission: 11/18/18 Attend Phys: Jessica Hines MD Discharge: Date of : 47 Report #: [id number] any concerns. We would like to thank you for letting us participate in his care. We hope he continues to improve. By: [id number]. Niranjan Hines MD /shantell
== END ==
LOC: M.PC 05:30
DX: Z76.0 Encounter for issue of repeat prescription (principal); C61 Malignant neoplasm of prostate; M25.572 Pain in left ankle and joints of left foot; I10 Essential (primary) hypertension; M19.90 Unspecified osteoarthritis, unspecified site; E78.00 Pure hypercholesterolemia, unspecified; Z79.899 Other long term (current) drug therapy

== ENCOUNTER → 2019-01-20 | Outpatient (CLI) | payer OTHER ==
[~2019-01-20] MED LIST changes: +MEDROLDOSEPACK PO
--- NOTE | ~2019-01-20 | PAINCON ---
[facility] [address] [place] [address] PAIN MANAGEMENT CONSULTATION Name: CHARANJIT CHRISTOPHER SR Room: [facility] HeatherNeo#: [id number] Admission: 01/20/19 Attend Phys: Jessica Hines MD Discharge: Date of : 47 Report #: [id number] THIS REPORT FOR: //name// CC: Christiano Hines DATE OF SERVICE: 01/20/2019 CHIEF COMPLAINT: "Left knee pain has gotten significantly worse." HISTORY: The patient is a 73-year-old gentleman who has been followed in the Pain Clinic because of chronic pain. Has pain, which involves his left foot. He rates his pain today as a 10/10. He ran out of medications about 4 days ago. He has noted some swelling in his left knee. He has a cane, which he uses to ambulate. Pain has been so problematic in his left leg that he is now walking with a crutch. As you may recall, he has had a fusion of his ankle. He injured it when he fell from the roof number of years ago. Notes that the weather pattern has changed somewhat. He feels that his hip on the left side and hip and knee are problematic. He has returned today for renewal of his medications. He feels that the oxycodone has been helpful. He was taking 105 tablets. He states that this provided him with about 3-1/2 tablets per day. At this juncture, the pain is so problematic, he would like to increase it to 4 tablets to help with the pain with his ability to cope with the discomfort. ALLERGIES: PENICILLIN, BEE STINGS, TRAMADOL, ZOSYN, AND PIPERACILLIN. CURRENT MEDICATIONS: Percocet 7.5 mg 1 p.o. q.i.d., doxepin 10 mg at bedtime. The patient is using metoprolol to help control his heart rate. Docusate b.i.d., and Antacid 1 tablet daily. PAIN CLINIC ASSESSMENT/PQRS: 1. The patient has some orthopedic changes involving his left ankle. Has pain and discomfort in the left knee. 2. Height 5 feet 9 inches, weight 195 pounds, BMI is 28.9. 3. Vital Signs: Blood pressure 114/66, heart rate 68, respiratory rate 18, room air saturation 98%, and temperature 97.7. 4. Pain intensity, 10/10. 5. Fall risk. The patient has not fallen in the last 3 months. He is walking with the use of a crutch instead of a cane. 6. Blood thinner. The patient is not on a blood thinning medication. 7. Hypertension. The patient is not being treated for hypertension. 8. The patient is being treated for heart rate with metoprolol. 9. Opioids greater than 6 weeks. The patient receives medication through one source the Pain Clinic. 10. Risk assessment tool, [place] [address] PAIN MANAGEMENT CONSULTATION Name: CHARANJIT CHRISTOPHER SR [facility] [id number] Admission: 01/20/19 Attend Phys: Jessica Hines MD Discharge: Date of : 47 Report #: [id number] 11. Recreational drug use. The patient denies use of recreational drugs. 12. Tobacco: The patient denies use of tobacco. 13. Alcohol: The patient denies frequent use of alcoholic beverages. PHYSICAL EXAMINATION: GENERAL: The patient is a well-developed, well-nourished white male. Appears his stated age. He is alert and oriented x 3. His affect is appropriate. Speech is fluent. HEENT: Normocephalic, atraumatic. Extraocular eye muscles intact. Sclerae nonicteric. Mucous membranes are moist. NECK: Without adenopathy or JVD. HEART: Regular rate. History of tachycardia. LUNGS: Clear to auscultation. ABDOMEN: Nontender. Bowel sounds present. MUSCULOSKELETAL: Without significant scoliosis, kyphosis or lordosis. Upper extremity muscle strength judged to be 5/5 for the major muscle groups. The patient has some pain in his left ankle. Notes some swelling and perception in his left knee. Has pain and discomfort with moving it through its range of motion. Has perception that is swollen. Uses hands to go from a sitting to a standing position before ambulating. IMPRESSION: 1. Chronic left ankle pain, status post fracture and instrumentation with screws ? the patient fell from a roof many years ago. 2. History of rheumatic fever. 3. History of scarlet fever. 4. Hypertension. 5. Arthritis. 6. Development of prostate cancer. 7. Elevated cholesterol. 8. Elevated heart rate, treated with metoprolol. RECOMMENDATIONS: We discussed treatment options with the patient. At this juncture, we will continue with his opioid medications. The patient states that his pain is quite problematic. He did ran out of medications about 4 days ago. He recounts that the pain has increased since he has ran out of medications. He now rates it as a 10/10. He has been walking with a crutch. He has not felt stable with using a cane. He feels that his pain is better when he is able to offload more of his weight onto the crutch. Has some pain in his left hip as well as the knee. He is not sure why the knee is so problematic. We will have the patient try a Medrol Dosepak. He will take this as prescribed. The left knee does not appear to be infected. It is cool to touch. He does note some soreness in this area with manipulation of movement of the patella. We will increase the patient's oxycodone to 7.5 mg 1 p.o. q.i.d. He was getting 105 tablets. We will increase this to 120. He will continue with the doxepin. He will give this medication a try and note its efficacy. [place] [address] PAIN MANAGEMENT CONSULTATION Name: CHARANJIT CHRISTOPHER Room: [facility]#: [id number] Admission: 01/20/19 Attend Phys: Jessica Hines MD Discharge: Date of : 47 Report #: [id number] has any problems with it. We would like to thank you for letting us participate in his care. We hope he continues to improve. By: [id number]. Niranjan Hines MD /nt
== END ==
LOC: M.PC 05:12
DX: M25.562 Pain in left knee (principal); M25.572 Pain in left ankle and joints of left foot; M19.90 Unspecified osteoarthritis, unspecified site; I10 Essential (primary) hypertension; E78.00 Pure hypercholesterolemia, unspecified; I00 Rheumatic fever without heart involvement; A38.9 Scarlet fever, uncomplicated; C61 Malignant neoplasm of prostate; Z79.899 Other long term (current) drug therapy; Z98.890 Other specified postprocedural states; Z88.0 Allergy status to penicillin; Z88.8 Allergy status to other drugs, medicaments and biological substances; Z91.030 Bee allergy status; Z91.81 History of falling

== ENCOUNTER → 2019-03-17 | Outpatient (CLI) | payer OTHER ==
--- NOTE | 2019-04-06 09:09 | PAINCON ---
[facility] [address] [place] [address] PAIN MANAGEMENT CONSULTATION Name: CHARANJIT CHRISTOPHER SR [facility] [id number] Admission: 03/17/19 Attend Phys: Jessica Hines MD Discharge: Date of : 47 Report #: [id number] THIS REPORT FOR: //name// CC: Christiano Hines DATE OF SERVICE: 03/17/2019 CHIEF COMPLAINT: Pain in the left foot, ankle and knee. HISTORY: The patient is a 74-year-old gentleman who has been followed in the Pain Clinic because of chronic pain. As you may recall, he continues to have pain, which is quite problematic in his left foot. He does walk with the use of a cane. Rates his pain as an 8/10 today. He has had his ankle fused. He injured his leg a number of years ago after falling from a roof. He is having some left shoulder pain as well. He denies any new trauma to that area. He feels that his medications of oxycodone have been helpful. He has undergone a Medrol Dosepak regimen. He found that that was somewhat helpful, but continues to have pain and discomfort. Notes that there are changes, increased pain with changes in weather. Notes that cold temperatures, walking and standing can exacerbate his discomfort. He is wearing a copper bracelet or brace on his left knee. ALLERGIES: PENICILLIN, BEE STINGS, TRAMADOL, ZOSYN, PIPERACILLIN. CURRENT MEDICATIONS: Percocet 7.5 mg 1 p.o. q.i.d., doxepin 10 mg at bedtime, metoprolol for heart rate, docusate b.i.d., and Antacid 1 tablet. PAIN CLINIC ASSESSMENT/PQRS: 1. The patient has some osteoarthritic changes involving his left ankle. Has pain and discomfort in his left knee. Height 5 feet 9 inches, weight 198 pounds, BMI is 29.3. 2. Vital Signs: Blood pressure 136/70, heart rate 74, respiratory rate 16, room air saturation 95%, temperature 97.9. 3. Pain intensity, 810. 4. Fall history. The patient has not fallen in the last 3 months. He continues to ambulate with use of his cane. 5. Blood thinner. The patient is not on a blood thinning medication. 6. Hypertension. The patient is not being treated for hypertension. 7. Opioids greater than 6 weeks. The patient receives medications through one source the Pain Clinic. 8. Risk assessment tool, low for opioid use. 9. Functional assessment tool. The patient denies use of recreational drugs. 10. Tobacco: The patient denies use of tobacco. 11. Alcohol. The patient denies frequent [place] [address] PAIN MANAGEMENT CONSULTATION Name: CHARANJIT CHRISTOPHER SR Room: [facility]#: [id number] Admission: 03/17/19 Attend Phys: Jessica Hines MD Discharge: Date of : 47 Report #: [id number] PHYSICAL EXAMINATION: GENERAL: The patient is a well-developed, well-nourished white male. Appears his stated age. He is alert and oriented x 3. His affect is appropriate. Speech is fluent. HEENT: Normocephalic, atraumatic. Extraocular eye muscles intact. Sclerae nonicteric. Mucous membranes are moist. NECK: Without adenopathy or JVD. HEART: Regular rate. History of tachycardia. LUNGS: Clear to auscultation. ABDOMEN: Nontender. MUSCULOSKELETAL: Upper extremity, the patient has some pain and discomfort in the left shoulder area. Also, has pain and discomfort in the left knee area. Has reasonable range of motion. Uses hands to go from a sitting to a standing position and walks using a cane with an antalgic gait. IMPRESSION: 1. Chronic left ankle pain, status post fracture and instrumentation with screws. The patient fell from a roof many years ago. 2. History of rheumatic fever. 3. History of scarlet fever. 4. Hypertension. 5. Arthritis. 6. Development of prostate cancer. 7. Elevated cholesterol. 8. Elevated heart rate, treated with metoprolol. RECOMMENDATIONS: We discussed treatment options with the patient. The patient has brought an x-ray series for his knee, left and right, and left shoulder. He asked that we review this. We did review the findings of the x-rays. We also used illustrations to inform the patient of the probable pathology involving his shoulder as well as his knee. A script for his medications of oxycodone 7.5 mg 1 p.o. t.i.d./q.i.d. have been rewritten. The patient is aware that opioid medications can be helpful with pain, but over the long-term can become less effective secondary to development of tolerance. The patient will also continue with doxepin at bedtime. He will call us if he has any concerns. We would like to thank you for letting us participate in his care. We hope he continues to improve. <ELECTRONICALLY SIGNED> By: Jessica Hines MD 04/06/19 [id number]. MD mahogany Kathleen
== END ==
LOC: M.PC 05:29
DX: G89.29 Other chronic pain (principal); M25.572 Pain in left ankle and joints of left foot; I10 Essential (primary) hypertension; M19.90 Unspecified osteoarthritis, unspecified site; E78.00 Pure hypercholesterolemia, unspecified; C61 Malignant neoplasm of prostate; I00 Rheumatic fever without heart involvement; A38.9 Scarlet fever, uncomplicated

== ENCOUNTER → 2019-05-19 | Outpatient (CLI) | payer OTHER ==
--- NOTE | ~2019-05-19 | PAINCON ---
[address] [address] PAIN MANAGEMENT CONSULTATION Name: CHARANJIT CHRISTOPHER SR Room: [facility] SONIA HeatherNeo#: [id number] Admission: 05/19/19 Attend Phys: Jessica Hines MD Discharge: Date of : 47 Report #: [id number] THIS REPORT FOR: //name// CC: Christiano Hines DATE OF SERVICE: 05/19/2019 The patient was seen on 05/19/2019 by Niranjan Hines. CHIEF COMPLAINT: Left foot, ankle and knee pain. HISTORY: The patient is a 74-year-old gentleman who has been followed in the pain clinic for quite a number of years. He has pain involving his left foot, ankle and his knee. He has used a brace on his left foot. States that brace at this juncture is nonfunctional. He has "worn it out." He has tried some lrei-xmo-nzjfyjr appliances and placed them in the shoe. They have not been helpful. He would like to have the Prosthetic Department remake his brace. He feels that the pain associated with his left foot is changing his gait. As a result of the change in gait, he has noticed an increased knee pain. He states that the orthotic that he bought [id number] does not fit his foot as well as the previous one did. He feels that his medications are helpful. He would like to have his medications renewed. He feels that the oxycodone medication is helpful. He is able to engage in activities he would not be able to without their use. As you may recall, he injured his foot many years ago. He fell from a roof. Notes that the change in weather has affected him. The colder weather has caused more problem with walking, standing, climbing stairs. ALLERGIES: PENICILLIN, BEE STINGS, TRAMADOL, ZOSYN, PENICILLIN, PIPERACILLIN. CURRENT MEDICATIONS: Percocet 7.5 mg 1 p.o. q.i.d., doxepin 10 mg at bedtime, metoprolol for heart rate, docusate b.i.d., antacid 1 tablet. PAIN CLINIC ASSESSMENT/PQRS: 1. The patient has arthritic changes involving his left ankle after a fall from a roof. He also has some discomfort in his left knee is associated with his changed gait. He is not being treated for rheumatoid arthritis. 2. Height 5 feet 9 inches, weight 202 pounds, BMI is 29.9. 3. Vital signs: Blood pressure 131/69, heart rate 75, respiratory rate 16, room air saturation is 96%, temperature 97.8. 4. Pain intensity 8/10. 5. Fall history: The patient has not fallen in the last 2 months. 6. Blood thinner. The patient is not on a blood thinning medication. 7. Hypertension. The patient is not being treated for hypertension. 8. Opioids greater than 6 weeks. The [place] [address] PAIN MANAGEMENT CONSULTATION Name: CHARANJIT CHRISTOPHER SR Room: [facility]#: [id number] Admission: 05/19/19 Attend Phys: Jessica Hines MD Discharge: Date of : 47 Report #: [id number] source, pain clinic. 9. Risk assessment tool, low for opioid. 10. Functional assessment tool, reviewed. 11. Recreational drug use: The patient denies use of tobacco. 12. Alcohol: The patient rarely drinks alcoholic beverages. PHYSICAL EXAMINATION: GENERAL: The patient is a well-developed, well-nourished white male. Appears his stated age. He is alert and oriented x 3. Affect is appropriate. Speech is fluent. HEENT: Normocephalic, atraumatic. Extraocular eye muscles intact. Sclerae nonicteric. Mucous membranes are moist. NECK: Without adenopathy or JVD. HEART: Regular rate. History of tachycardia. LUNGS: Clear to auscultation. ABDOMEN: Nontender. MUSCULOSKELETAL: The patient's upper extremity muscle strength judged to be 5-/5 for the major muscle groups in his right upper arm. He has some left shoulder discomfort. The patient without significant scoliosis, kyphosis or lordosis. Does walk with an antalgic gait. Has pain in the heel portion of his left foot. Has increased discomfort with standing and walking. Walks with a cane. IMPRESSION: 1. Chronic ankle pain, status post fracture and instrumentation with screws. The patient fell from a roof many years ago. 2. History of rheumatic fever. 3. History of scarlet fever. 4. Hypertension. 5. Arthritis. 6. Development of prostate cancer. 7. Elevated cholesterol. 8. Elevated heart rate, treated with metoprolol. RECOMMENDATIONS: We discussed treatment options with the patient. At this juncture, he feels medications are helpful. He takes them as prescribed. He is aware that opioid medications can become less effective as time goes on. Overall, these medications were helpful and he is able to engage in activities of daily living, he would not be able to without their use. He is aware that some patients can develop problems with addiction. He does not feel he is addicted. He has not shown any addictive behavior. He has taken the medication as prescribed. The patient has pain in his left heel. As a result of wearing out his prosthesis, he is ambulating differently. As a result of this change in his gait, he has noticed increased pain in his left knee. We would recommend the patient see a person who makes orthotics. Hopefully, he would be able to have a reproduction of his orthotic, so that [place] [address] PAIN MANAGEMENT CONSULTATION Name: CHARANJIT CHRISTOPHER SR Room: [facility]#: [id number] Admission: 05/19/19 Attend Phys: Jessica Hines MD Discharge: Date of : 47 Report #: [id number] discomfort. Hopefully, this will improve the gait and change his alignment with his knees, so he is not having as much discomfort. A script will be written for that. He states that he has had this brace provided at one facility. He will follow up with that facility and see what information needs to be provided in order for him to get the brace so that he can walk more normal, decrease the pain in his knee and increase his level of comfort. We would like to thank you for letting us participate in his care. We hope he continues to improve. By: [id number]. Niranjan Hines MD /nt
== END ==
LOC: M.PC 04:56
DX: M25.579 Pain in unspecified ankle and joints of unspecified foot (principal); M19.90 Unspecified osteoarthritis, unspecified site; I10 Essential (primary) hypertension; C61 Malignant neoplasm of prostate; E78.00 Pure hypercholesterolemia, unspecified; A38.9 Scarlet fever, uncomplicated

== ENCOUNTER → 2019-07-14 | Outpatient (CLI) | payer OTHER, MEDICAID ==
--- NOTE | 2019-07-29 08:24 | PAINCON ---
[address] [address] PAIN MANAGEMENT CONSULTATION Name: CHARANJIT CHRISTOPHER SR [id number] Admission: 07/14/19 Attend Phys: Jessica Hines MD Discharge: Date of : 47 Report #: [id number] THIS REPORT FOR: //name// cc: Physician not on staff Physician not on staff ~ THIS REPORT FOR: //name// CC: Christiano Hines Physician staff The patient was seen on 07/14/2019 by Niranjan Hines MD CHIEF COMPLAINT: Left foot pain, left ankle and knee pain. HISTORY: The patient is a 74-year-old gentleman who has been followed in the pain clinic because of chronic pain. He continues to suffer pain in the left foot, ankle and knee. He has returned today for renewal of his medications. He states that the medications are working reasonably well. He is not having any untoward problems with them. He rates his pain as 8/10 today. He has used a brace on his left foot. He feels that he may need to have another brace to replace one that is worn out. As you may recall, the pain he is experiencing is chronic in nature. It has been ongoing for a number of years. He fell from a roof. Weather change has caused some change in his pain score. Now he notes that his pain is worse when he is sitting, going from a sitting to a standing position, lifting or bending. ALLERGIES: PENICILLIN, BEE STINGS, TRAMADOL, ZOSYN, PENICILLIN, PIPERACILLIN. CURRENT MEDICATIONS: Percocet 7.5 mg 1 p.o. q.i.d., doxepin 10 mg at bedtime, metoprolol for heart rate, docusate b.i.d., and Antacid tablet. PAIN CLINIC ASSESSMENT/PQRS: 1. The patient has some arthritic changes involving his left ankle after a fall from the roof. He has had some discomfort in his left knee associated with his gait change. He is not being treated for rheumatoid arthritis. 2. Height 5 feet 9 inches, weight 203 pounds, BMI is 30. 3. Vital Signs: Blood pressure 135/68, heart rate 69, respiratory rate 16, room air saturation 97%, temperature 97.8. 4. Pain intensity is 8/10. 5. Fall risk. The patient has not fallen in the last 3 months. 6. Hypertension. The patient is not being treated for hypertension. 7. Blood thinner. The patient is not on a blood thinning medication. 8. Opioids greater than 6 weeks. The [facility]. 9. Risk assessment tool, [place] [address] PAIN MANAGEMENT CONSULTATION Name: CHARANJIT CHRISTOPHER SR Room: [facility]#: [id number] Admission: 07/14/19 Attend Phys: Jessica Hines MD Discharge: Date of : 47 Report #: [id number] 10. Functional assessment tool reviewed. 11. Recreational drug use: The patient denies. 12. Alcohol: The patient rarely drinks alcoholic beverages. PHYSICAL EXAMINATION: GENERAL: The patient is a well-developed, well-nourished white male who appears his stated age. He is alert and oriented x 3. His affect is appropriate. Speech is fluent. HEENT: Normocephalic, atraumatic. Extraocular eye muscles intact. Sclerae are nonicteric. Mucous membranes are moist. NECK: Without adenopathy or JVD. HEART: History of tachycardia. LUNGS: Clear to auscultation. ABDOMEN: Nontender. MUSCULOSKELETAL: The patient's upper extremity muscle strength judged to be 5-/5 for the major muscle groups in the right upper extremity. The patient has some left shoulder discomfort. The patient is without significant scoliosis, kyphosis or lordosis. The patient walks with an antalgic gait. He complains of pain in his heel and the portion of his left foot. Increased discomfort with walking and standing. He uses a cane. IMPRESSION: 1. Chronic ankle pain, status post fracture and instrumentation with screws in the past. The patient fell from a roof many years ago. 2. History of rheumatic fever. 3. History of scarlet fever. 4. Hypertension. 5. Osteoarthritis. 6. Development of prostate cancer. 7. Elevated cholesterol. 8. Elevated heart rate, treated with metoprolol. RECOMMENDATIONS: We discussed treatment options with the patient. Risks and benefits of opioid medications were discussed. He feels that the medications continue to be helpful. They enable him to engage in activities he probably would not be able to without significant discomfort. He feels that the medication continues to be efficacious. He is aware that opioid medications as time progresses can become less effective. He has not shown any signs of addictive behavior. He has taken the medication as prescribed. He does have pain in his left heel. He will consider getting another prosthesis to help with the pain. He will call us if he has any concerns. A script for his medications has been rewritten. He will continue with oxycodone 7.5 mg 1 tablet p.o. q.4-6 hours. He will call us if the need arises. [address] [place] [address] PAIN MANAGEMENT CONSULTATION Name: CHARANJIT CHRISTOPHER Room: [facility]#: [id number] Admission: 07/14/19 Attend Phys: Jessica Hines MD Discharge: Date of : 47 Report #: [id number] We would like to thank you for letting us participate in his care. We hope he continues to improve. <ELECTRONICALLY SIGNED> By: Jessica Hines MD 07/29/19 0824 1306 [id number]. Niranjan Hines MD /nt
== END ==
LOC: M.PC 09:40
PROVIDERS: Anesthesiology Pain Medicine
DX: M25.572 Pain in left ankle and joints of left foot (principal); M79.672 Pain in left foot; M25.562 Pain in left knee; I10 Essential (primary) hypertension; M19.90 Unspecified osteoarthritis, unspecified site; C61 Malignant neoplasm of prostate; E78.00 Pure hypercholesterolemia, unspecified; G89.29 Other chronic pain; Z86.19 Personal history of other infectious and parasitic diseases; Z88.0 Allergy status to penicillin; Z88.1 Allergy status to other antibiotic agents; Z88.8 Allergy status to other drugs, medicaments and biological substances; Z91.030 Bee allergy status; Z79.899 Other long term (current) drug therapy

== ENCOUNTER → 2019-09-08 | Outpatient (CLI) | payer OTHER ==
--- NOTE | 2019-09-09 09:01 | PAINCON ---
[address] [address] PAIN MANAGEMENT CONSULTATION Name: CHARANJIT CHRISTOPHER SR Room: [facility]#: [id number] Admission: 09/08/19 Attend Phys: Jessica Hiens MD Discharge: Date of : 47 Report #: [id number] THIS REPORT FOR: //name// cc: Krystal Trevino MD, Debra K. MD ~ THIS REPORT FOR: //name// CC: Krystal Hines DATE OF SERVICE: 09/08/2019 CHIEF COMPLAINT: Pain in the back, elbows, ankle. HISTORY: The patient is a 74-year-old gentleman. He has been followed in the pain clinic. He continues to suffer from pain involving a number of areas. He has foot pain involving his ankle. He also has knee pain. Today, there has been an increased discomfort in the area of his elbows on both sides and he has some generalized pain. He feels that his medications are helpful. He rates his pain as an 8/10 for the most part. He has taken the medication as prescribed. He does have a brace on his left foot. He fell from a roof many years ago. Since that time, he has continued to have pain in his ankle. He does walk with use of a cane. Activity such as sitting, going from a sitting to a standing position, lifting and bending can exacerbate his discomfort. He has taken seriously the COVID-19 suggestions of staying socially isolated. He was considering having a rotator cuff repair involving his left side that has been placed on hold given the cancellations of elective surgeries. He feels his medications are helpful and has returned today for renewal. ALLERGIES: PENICILLIN, BEE STINGS, TRAMADOL, ZOSYN, PIPERACILLIN. CURRENT MEDICATIONS: Percocet 7.5 mg one p.o. q.i.d., doxepin 10 mg at bedtime, metoprolol for heart rate, docusate b.i.d., antacid tablet. PAIN CLINIC ASSESSMENT AND PQRS: 1. The patient has some pain in his left ankle after a fall from a roof. The patient also has some pain and discomfort in his left shoulder. Possibility of rotator cuff surgery is imminent. The patient is not being treated for rheumatoid arthritis. 2. Height 5 feet 9 inches, weight 211 pounds, BMI 31. 3. Vital signs: Blood pressure 142/81, heart rate 75, respiratory rate 16, room air saturation 96%, temperature is 97.8. 4. Pain intensity is 8/10. 5. Fall risk. The patient has not fallen in the last 3 months. 6. Blood thinner. The patient is not on [place] [address] PAIN MANAGEMENT CONSULTATION Name: CHARANJIT CHRISTOPHER SR Room: [facility]#: [id number] Admission: 09/08/19 Attend Phys: Jessica Hines MD Discharge: Date of : 47 Report #: [id number] 7. Opioids greater than 6 weeks. The patient received medication from [facility], pain clinic. 8. Risk assessment tool, low for opioid use. 9. Functional assessment tool reviewed. 10. Recreational drug use. The patient denies. 11. Alcohol. The patient rarely drinks alcoholic beverages. PHYSICAL EXAMINATION: GENERAL: The patient is a well-developed, well-nourished white male. He appears his stated age. He is alert and oriented x 3. His affect is appropriate. Speech is fluent. HEENT: Normocephalic, atraumatic. Extraocular eye muscles intact. Sclerae nonicteric. Mucous membranes are moist. NECK: Without adenopathy or JVD. HEART: Regular rate. Has a history of tachycardia and takes metoprolol for this. LUNGS: Clear to auscultation. ABDOMEN: Nontender. MUSCULOSKELETAL: Upper extremity muscle strength judged to be 5/5 for the major muscle groups on the right side. The patient has some pain and discomfort in the left side with muscle strength 4+/5. Lower extremity muscle strength is 5-/5 for the lower extremity. The patient does walk with an antalgic gait. Has pain in the left ankle. Uses a cane. IMPRESSION: 1. Chronic ankle pain, status post fracture and instrumentation with screws in the past. The patient fell from the roof many years ago. 2. History of rheumatic fever in the past. 3. History of scarlet fever. 4. Hypertension. 5. Osteoarthritis. 6. Development of prostate cancer. 7. Elevated cholesterol. 8. Elevated heart rate, treated with metoprolol. RECOMMENDATIONS: We discussed treatment options with the patient. Risks and benefits of opioid medications were again reviewed. The patient has been taking his medications for some time. He does not feel he is having any complications. He has taken the medications to help control the pain. He is able to engage in activities of daily living, he would not be able to without its use. He has returned today for renewal of his medication. Still is having pain in his heel. He would like to have surgery in the left shoulder. Given the COVID-19 problems, his surgery has been put on hold. We would like to thank you for letting us participate in his care. He has been provided a script for his medications of oxycodone 7.5 mg 1 p.o. total of [address] [place] [address] PAIN MANAGEMENT CONSULTATION Name: CHARANJIT CHRISTOPHER SR Room: [facility]#: [id number] Admission: 09/08/19 Attend Phys: Jessica Hines MD Discharge: Date of : 47 Report #: [id number] tablets for the next 2 months. He will follow up in the near future. He will call us if he has any concerns. We would like to thank you for letting us participate in his care. We hope he continues to improve. <ELECTRONICALLY SIGNED> By: Jessica Hines MD 09/09/19 0901 1317 [id number]. Niranjan Hines MD /nt
== END ==
LOC: M.PC 02:44
DX: M54.5 Low back pain (principal); M25.529 Pain in unspecified elbow; M25.579 Pain in unspecified ankle and joints of unspecified foot; I10 Essential (primary) hypertension; M19.90 Unspecified osteoarthritis, unspecified site; C61 Malignant neoplasm of prostate; E78.00 Pure hypercholesterolemia, unspecified; I49.8 Other specified cardiac arrhythmias; Z88.1 Allergy status to other antibiotic agents; Z88.8 Allergy status to other drugs, medicaments and biological substances; Z79.891 Long term (current) use of opiate analgesic; Z79.899 Other long term (current) drug therapy

== ENCOUNTER → 2019-11-03 | Outpatient (CLI) | payer OTHER ==
--- NOTE | 2019-11-14 09:22 | PAINCON ---
[address] [address] PAIN MANAGEMENT CONSULTATION Name: CHARANJIT CHRISTOPHER SR [id number] Admission: 11/03/19 Attend Phys: Jessica Hines MD Discharge: Date of : 47 Report #: [id number] THIS REPORT FOR: //name// cc: Krystal Trevino MD, Debra K. MD ~ THIS REPORT FOR: //name// CC: Krystal Hines DATE OF SERVICE: 11/03/2019 CHIEF COMPLAINT: Continued chronic pain in the back, elbow and ankle. HISTORY: The patient is a 74-year-old gentleman who has been followed in the pain clinic. He has chronic pain involving his leg and ankle. He feels medications continue to be helpful. He rates his pain today as an 8/10. He does wear a brace on his left foot. As you may recall, he injured his foot a number of years ago. He fell. He has continued to have problems with that left ankle. He does walk with a cane. He has been pain at home. He is aware of the COVID-19 pandemic. He is remaining socially isolated. He is considering having a rotator cuff repair on his left side. Because of the cancellations of elective surgeries, he has not had this done. Now that the surgical suite are beginning to open up. He may consider surgery in the future. ALLERGIES: PENICILLIN, BEE STINGS, TRAMADOL, ZOSYN, PIPERACILLIN, PERCOCET. CURRENT MEDICATIONS: Percocet 7.5 mg 1 p.o. q.i.d., doxepin 10 mg at bedtime, metoprolol for heart rate, antacid tablets, docusate b.i.d. PAIN CLINIC ASSESSMENT/PQRS: 1. The patient has pain in his left ankle after sustaining a fall from a roof. The patient also has pain and discomfort in the left shoulder. Considering surgery. 2. The patient is not being treated for rheumatoid arthritis. 3. Height 5 feet 9 inches, weight 212 pounds, BMI is 31.4. 4. Vital signs: Blood pressure 138/74, heart rate 68, temperature 97.8. 5. Pain intensity 3-8/10. 6. Fall history: The patient has not fallen since we saw him last. 7. Blood thinner. The patient is not on a blood thinning medication. 8. Opioids greater than 6 weeks. The patient receives medications from the pain clinic. 9. Risk assessment tool, low for opioid use. 10. Functional assessment tool reviewed. 11. Recreational drug use. The patient denies. 12. Alcohol: The patient [place] [address] PAIN MANAGEMENT CONSULTATION Name: CHARANJIT CHRISTOPHER Room: [facility]#: [id number] Admission: 11/03/19 Attend Phys: Jessica Hines MD Discharge: Date of : 47 Report #: [id number] PHYSICAL EXAMINATION: GENERAL: The patient is a well-developed, well-nourished white male. Appears his stated age. He is alert and oriented x 3. His affect is appropriate. Speech is fluent. HEENT: Normocephalic, atraumatic. Extraocular eye muscles intact. Sclerae nonicteric. Mucous membranes are moist. NECK: Without adenopathy or JVD. HEART: Regular rate. LUNGS: Clear to auscultation. ABDOMEN: Nontender. MUSCULOSKELETAL: The patient without significant scoliosis, kyphosis or lordosis. The patient's muscle strength in the upper extremity is 5-/5 on the right side and 4+/5 on the left side. The patient's lower extremity muscle strength judged to be 5-/5 for the lower extremity. The patient walks with an antalgic gait. He uses a cane. Has pain in the left ankle. IMPRESSION: 1. Chronic pain in the left ankle, status post fracture with instrumentation and screws in the past. The patient fell from a roof many years ago. 2. History of rheumatoid arthritis in the past. 3. History of scarlet fever. 4. Hypertension. 5. Osteoarthritis. 6. Development of prostate cancers. 7. Elevated cholesterol. 8. Elevated heart rate, treated with metoprolol. RECOMMENDATIONS: We discussed treatment options with the patient. At this juncture, we will continue with his medications. He feels medications are helpful. He is not having any untoward reaction from the medications. He is able to think clearly. He feels these medications enable him to stay more active. He is not having any problems with the medicines. He is aware that over time these medications can become less effective secondary to development of tolerance. He is keeping his medications in a guarded area. He will call us if he has any concerns. A script for his medications of oxycodone 7.5 mg 1 p.o. q.i.d. has been provided. This is for the next 2 months. He will call us if he has any concerns. <ELECTRONICALLY SIGNED> By: Jessica Hines MD 11/14/19 0922 0130 [id number]. Niranjan Hines MD /SIMEON
== END ==
LOC: M.PC 04:10
DX: M54.5 Low back pain (principal); M25.529 Pain in unspecified elbow; M25.572 Pain in left ankle and joints of left foot; I10 Essential (primary) hypertension; M19.90 Unspecified osteoarthritis, unspecified site; C61 Malignant neoplasm of prostate; E78.00 Pure hypercholesterolemia, unspecified; Z79.899 Other long term (current) drug therapy; Z87.39 Personal history of other diseases of the musculoskeletal system and connective tissue; Z88.0 Allergy status to penicillin; Z88.1 Allergy status to other antibiotic agents; Z88.8 Allergy status to other drugs, medicaments and biological substances

== ENCOUNTER → 2019-12-29 | Outpatient (CLI) | payer OTHER ==
--- NOTE | 2020-01-06 09:02 | PAINCON ---
[address] [address] PAIN MANAGEMENT CONSULTATION Name: CHARANJIT CHRISTOPHER SR Room: [facility]#: [id number] Admission: 12/29/19 Attend Phys: Jessica Hines MD Discharge: Date of : 47 Report #: [id number] THIS REPORT FOR: //name// cc: Krystal Trevino MD ~ THIS REPORT FOR: //name// CC: Krystal Hines DATE OF SERVICE: 12/29/2019 CHIEF COMPLAINT: Back elbow and knee pain. HISTORY: The patient is a 74-year-old gentleman who has been followed in the Pain Clinic because of chronic pain involving his back, elbows and ankles. He finds that his medications of oxycodone are helpful. He rates the pain as a 7/10 today. He notes that the rising humidity has caused more pain and discomfort. He has not fallen. He has not had any new trauma. Overall, he feels that things are going reasonably well. Does wear a brace on his left foot. He injured his foot in a fall some years ago. He has been staying at home because of the COVID-19 pandemic. He is remaining socially isolated. Because of the cancellation of surgeries, he has not had surgery, but is considering surgery on his rotator cuff on the left side. ALLERGIES: PENICILLIN, BEE STINGS, TRAMADOL, ZOSYN, PIPERACILLIN, PERCOCET. CURRENT MEDICATIONS: Percocet 7.5 mg 1 p.o. q.i.d., doxepin 10 mg at bedtime, metoprolol for heart rate, Antacid tablets, docusate b.i.d. PAIN CLINIC ASSESSMENT/PQRS: 1. The patient has some left ankle pain after sustaining a fall from a roof. He also has pain and discomfort in the left shoulder is considering shoulder surgery. 2. The patient is not being treated for rheumatoid arthritis. 3. Height 5 feet 9 inches, weight 205 pounds, BMI is 30. 4. Vital Signs: Blood pressure 124/75, heart rate 69, respiratory rate 16, room air saturation 97%, and temperature 96.2. 5. Pain intensity, 710. 6. Fall history: The patient has not fallen in the last 3 months. 7. Blood thinner. The patient is not on a blood thinning medication. 8. Opioids greater than 6 weeks. The patient receives medication from the Pain Clinic. 9. Risk assessment tool, low for opioid use. 10. Functional assessment tool reviewed. 11. Recreational drug [place] [address] PAIN MANAGEMENT CONSULTATION Name: CHARANJIT CHRISTOPHER Room: [facility]#: [id number] Admission: 12/29/19 Attend Phys: Jessica Hines MD Discharge: Date of : 47 Report #: [id number] 12. Alcohol: The patient rarely drinks alcoholic beverages. PHYSICAL EXAMINATION: GENERAL: The patient is a well-developed, well-nourished white male. Appears his stated age. He is alert and oriented x 3. His affect is appropriate. Speech is fluent. HEENT: Normocephalic, atraumatic. Extraocular eye muscles intact. Sclerae nonicteric. Mucous membranes are moist. The patient is wearing a mask. NECK: Without adenopathy or JVD. HEART: Regular rate. LUNGS: Generally clear to auscultation. ABDOMEN: Nontender. MUSCULOSKELETAL: The patient is without significant scoliosis, kyphosis or lordosis. The patient complains of pain and discomfort in his back, elbow and in his ankle. Muscle strength in the upper extremity is judged to be 5-/5 on the right and 4+/5 on the left. The patient Lower extremity muscle strength judged to be 5- for the lower extremity. Walks with an antalgic gait. Uses a cane. Complains of pain in the left ankle. IMPRESSION: 1. Chronic pain, left ankle, status post fracture with instrumentation and screws in the past. The patient fell from a roof many years ago. 2. History of rheumatoid arthritis. 3. History of scarlet fever. 4. Hypertension. 5. Osteoarthritis. 6. Development of prostate cancer. 7. Elevated cholesterol. 8. Elevated heart rate, treated with metoprolol. RECOMMENDATIONS: We discussed treatment options with the patient. At this juncture, we will continue with his medications. A script for oxycodone 7.5 mg 1 p.o. q.i.d. has been rewritten. The patient will call us if he has any concerns with his medications. He appears to be taken the medication as prescribed. He is not having any complications. He is aware that opioid medications have been problematic for some patients. He is aware that the mortality that the deaf count on some patients has increased because of overdosing of medications. He keeps his medications in a guarded area. He would like to continue with the medication. He will call us in the future should [place] [address] PAIN MANAGEMENT CONSULTATION Name: CHARANJIT CHRISTOPHER SR [id number] Admission: 12/29/19 Attend Phys: Jessica Hines MD Discharge: Date of : 47 Report #: [id number] We would like to thank you for letting us participate in his care. We hope he continues to improve. <ELECTRONICALLY SIGNED> By: Jessica Hines MD 01/06/20901 1305 0156Emily. Niranjan Hines MD /nt
== END ==
LOC: M.PC 03:59
PROVIDERS: ATTEND Anesthesiology Pain Medicine
DX: M54.9 Dorsalgia, unspecified (principal); G89.29 Other chronic pain; M25.579 Pain in unspecified ankle and joints of unspecified foot; I10 Essential (primary) hypertension; M19.90 Unspecified osteoarthritis, unspecified site; C61 Malignant neoplasm of prostate; E78.00 Pure hypercholesterolemia, unspecified; R00.0 Tachycardia, unspecified; Z79.899 Other long term (current) drug therapy; Z88.8 Allergy status to other drugs, medicaments and biological substances; Z87.39 Personal history of other diseases of the musculoskeletal system and connective tissue

== ENCOUNTER → 2020-02-23 | Outpatient (CLI) | payer OTHER, MEDICAID ==
--- NOTE | 2020-03-08 08:38 | PAINCON ---
[address] [address] PAIN MANAGEMENT CONSULTATION Name: CHARANJIT CHRISTOPHER SR Room: [facility]#: [id number] Admission: 02/23/20 Attend Phys: Jessica Hines MD Discharge: Date of : 49 Report #: [id number] THIS REPORT FOR: //name// cc: SUNIL STEVENS MD Physician not on staff ~ THIS REPORT FOR: //name// CC: Dr. Krystal Hines Physician staff DATE OF SERVICE: 02/23/2020 CHIEF COMPLAINT: Low back and elbow and ankle pain. HISTORY: The patient is a 75-year-old gentleman who has been followed in the pain clinic because of back, elbow and ankle pain. The patient feels that his medications continue to be helpful. He rates his pain today as an 8/10. He is having pain that has stayed relatively constant. This is the same level that he experienced at the last visit. He injured his left foot in a fall many years ago. It continues to plague him. He notes that the COVID-19 is pandemic. He is trying to socially isolate himself. He continues to have pain involving his shoulder. He is unable to have rotator cuff surgery on the left side because of the pandemic. ALLERGIES: PENICILLIN, BEE STINGS, TRAMADOL, ZOSYN, PIPERACILLIN. CURRENT MEDICATIONS: Percocet 7.5 mg 1 p.o. q.i.d., doxepin 10 mg at bedtime, metoprolol for heart rate, antacid tablets, docusate b.i.d. PAIN CLINIC ASSESSMENT/PQRS: 1. The patient has some pain in the left ankle after sustaining a fall from a roof many years ago. He is not being treated for rheumatoid arthritis. 2. He has some pain and discomfort in his left shoulder and is considering surgery in the future. 3. Height 5 feet 9 inches, weight 200 pounds, BMI is 29. 4. Vital signs: Blood pressure 137/70, heart rate 62, respiratory rate 16, room air saturation 98%, temperature 97.7. 5. Pain intensity 8/10. 6. Fall history: The patient has not fallen in the last 3 months. 7. Blood thinner: The patient is not on a blood thinning medication. 8. Opioids greater than 6 weeks: The patient receives medication from [facility]. 9. Risk assessment tool: Low for opioid use. 10. Functional assessment tool: [place] [address] PAIN MANAGEMENT CONSULTATION Name: CHARANJIT CHRISTOPHER Room: [facility]#: [id number] Admission: 02/23/20 Attend Phys: Jessica Hines MD Discharge: Date of : 49 Report #: [id number] 11. Recreational drug use: The patient denies. 12. Alcohol. The patient rarely drinks alcoholic beverages. PHYSICAL EXAMINATION: GENERAL: The patient is a well-developed, well-nourished white male. Appears his stated age. He is alert and oriented x 3. His affect is appropriate. Speech is fluent. HEENT: Normocephalic, atraumatic. Extraocular eye muscles intact. Sclerae nonicteric. Mucous membranes are moist. The patient is wearing a facial covering. NECK: Without adenopathy or JVD. HEART: Regular rate. LUNGS: Generally clear. ABDOMEN: Nontender. MUSCULOSKELETAL: The patient without significant scoliosis, kyphosis or lordosis. The patient complains of pain and discomfort in his back, elbow and his left ankle. Muscle strength in the upper extremity judged to be 5-/5 for the major muscle groups on the right and 4+/5 on the left. The patient's lower extremity muscle strength is judged to be 5-/5 for the lower extremity. The patient walks with an antalgic gait. He uses a cane. He complains of pain in the left ankle. IMPRESSION: 1. Chronic pain left ankle, status post fracture with instrumentation and screws in the past. The patient fell from a roof many years ago. 2. History of rheumatoid arthritis. 3. History of scarlet fever. 4. Hypertension. 5. Osteoarthritis. 6. Development of prostate cancer. 7. Elevated cholesterol. 8. Elevated heart rate, treated with metoprolol. RECOMMENDATIONS: We discussed treatment options with the patient. At this juncture, he feels his medications are working relatively well. A script for his medications has been written. The patient will continue with oxycodone 7.5 mg one p.o. 4 times daily. He will also continue with [id number] medications as he sees fit. We would like to thank you for letting us participate in his care. We hope he continues to improve. <ELECTRONICALLY SIGNED> By: Jessica Hines MD 03/08/20 [id number]. Niranjan Hines MD /SIMEON
== END ==
LOC: M.PC 09:24
PROVIDERS: ATTEND Anesthesiology Pain Medicine
DX: M54.5 Low back pain (principal); M25.572 Pain in left ankle and joints of left foot; M25.522 Pain in left elbow; I10 Essential (primary) hypertension; M19.90 Unspecified osteoarthritis, unspecified site; C61 Malignant neoplasm of prostate; E78.00 Pure hypercholesterolemia, unspecified; Z86.19 Personal history of other infectious and parasitic diseases; R00.9 Unspecified abnormalities of heart beat; Z87.39 Personal history of other diseases of the musculoskeletal system and connective tissue; Z88.8 Allergy status to other drugs, medicaments and biological substances; Z79.899 Other long term (current) drug therapy

== ENCOUNTER → 2020-04-19 | Outpatient (CLI) | payer OTHER, MEDICAID ==
--- NOTE | 2020-05-17 14:42 | PAINCON ---
[address] [address] PAIN MANAGEMENT CONSULTATION Name: CHARANJIT CHRISTOPHER [id number] Admission: 04/19/20 Attend Phys: Jessica Hines MD Discharge: Date of : 49 Report #: [id number] THIS REPORT FOR: //name// cc: Physician not on staff Physician not on staff ~ CC: MD Jessica Cortes Physician staff DATE OF SERVICE: 04/19/2020 CHIEF COMPLAINT: Low back and ankle pain. HISTORY: The patient is a 75-year-old gentleman who has been followed in the pain clinic for a number of years. He has chronic pain involving 3 areas. He has pain in his back. He has pain in his elbow. He has pain in his ankle. These have been ongoing for years. He has had no significant change since we saw him last. He feels that his medications are helpful. He would like to have the medications renewed. He notes that as the temperature has changed his pain has increased. Walking, standing and other activities are problematic. He avoids steps. Feels that the medication is helpful. Rest is helpful. He has returned today for medications. ALLERGIES: PENICILLIN, BEE STINGS, TRAMADOL, ZOSYN, PIPERACILLIN. CURRENT MEDICATIONS: Percocet 7.5 mg 1 p.o. q.i.d., doxepin 10 mg at bedtime, metoprolol for heart rate, antacid tablets, docusate b.i.d. PAIN CLINIC ASSESSMENT/PQRS: 1. The patient has some pain and discomfort in his left ankle, which he has sustained a fall many years ago from a roof. He is not being treated for rheumatoid arthritis. 2. Vital Signs: Blood pressure 141/72, heart rate 60, respiratory rate 20, room air saturation 97%. 3. Weight 209 pounds, height 5 feet 9 inches, temperature 96.2. 4. Pain intensity 10. 5. Fall history: The patient has not fallen in the last 3 months. 6. Blood thinner. The patient is not on a blood thinning medication. 7. Risk assessment tool, low for opioid use. 8. Functional assessment tool, reviewed. 9. Recreational drug use: The patient denies. 10. Alcohol: The patient rarely drinks alcoholic beverages. PHYSICAL EXAMINATION: GENERAL: The patient is a well-developed, well-[place] [address] PAIN MANAGEMENT CONSULTATION Name: CHARANJIT CHRISTOPHER SR Room: [facility]#: [id number] Admission: 04/19/20 Attend Phys: Jessica Hines MD Discharge: Date of : 49 Report #: [id number] his stated age. He is alert and oriented x 3. His affect is appropriate. Speech is fluent. HEENT: Normocephalic, atraumatic. Extraocular eye muscles intact. Sclerae nonicteric. The patient is wearing a facial covering. NECK: Without adenopathy or JVD. HEART: Regular rate. LUNGS: Generally clear. ABDOMEN: Nontender. MUSCULOSKELETAL: The patient without significant scoliosis, kyphosis or lordosis. The patient complains of pain and discomfort in his back. Has pain in his elbow as well as pain in the left ankle. The patient notes muscle strength in the lower extremities 5-/5 for the major muscle groups on the right and 4+/5 on the left. The patient walks with an antalgic gait. He uses a cane. Complains of pain and discomfort in the left ankle. IMPRESSION: 1. Chronic left ankle pain, status post fracture with instrumentation and screws in the past -- the patient fell from a roof many years ago. 2. History of rheumatoid arthritis. 3. History of scarlet fever. 4. Hypertension. 5. Osteoarthritis. 6. Development of prostate cancer. 7. Elevated cholesterol. 8. Elevated heart rate, treated with metoprolol. RECOMMENDATIONS: We discussed the treatment options with the patient. At this juncture, we will continue with his current medical regimen. He feels that the medications are working relatively well. He has taken the medication as prescribed. He is thinking clearly. He is not altering his sensorium. He is aware that opioid medications can become less effective as time goes on because of development of tolerance. He is aware that certain people have developed addiction to these medications. He does not show any signs of addiction. He feels the medications offer him benefit and he is able to engage in activities he would not be able to attain without their use. We would like to thank you for letting us participate in his care. Scripts have been sent to his pharmacy. <ELECTRONICALLY SIGNED> By: Jessica Hines MD 05/17/20 [id number]. Niranjan Hines MD /SIMEON
== END ==
LOC: M.PC 09:22
PROVIDERS: ATTEND Anesthesiology Pain Medicine
DX: M54.5 Low back pain (principal)

== ENCOUNTER → 2020-06-12 | Outpatient (CLI) | payer OTHER, MEDICAID | LOC: M.PC 09:44 | PROVIDERS: ATTEND Anesthesiology Pain Medicine | DX: G89.29 Other chronic pain (principal); M06.9 Rheumatoid arthritis, unspecified; E78.00 Pure hypercholesterolemia, unspecified; I10 Essential (primary) hypertension; Z88.0 Allergy status to penicillin; Z88.8 Allergy status to other drugs, medicaments and biological substances; Z68.32 Body mass index [BMI] 32.0-32.9, adult; Z98.890 Other specified postprocedural states; Z79.891 Long term (current) use of opiate analgesic ==

== ENCOUNTER → 2020-08-07 | Outpatient (CLI) | payer OTHER, MEDICAID | LOC: M.PC 10:30 | PROVIDERS: ATTEND Anesthesiology Pain Medicine | DX: C61 Malignant neoplasm of prostate (principal); I10 Essential (primary) hypertension; M54.5 Low back pain; G89.29 Other chronic pain; M19.90 Unspecified osteoarthritis, unspecified site; E78.00 Pure hypercholesterolemia, unspecified; Z98.890 Other specified postprocedural states; Z79.899 Other long term (current) drug therapy ==

== ENCOUNTER → 2020-10-02 | Outpatient (CLI) | payer OTHER, MEDICAID ==
[~2020-10-02] MED LIST changes: +ZINC50 M2 PO
== END ==
LOC: M.PC 10:21
PROVIDERS: ATTEND Anesthesiology Pain Medicine
DX: M25.572 Pain in left ankle and joints of left foot (principal); M54.9 Dorsalgia, unspecified; M19.90 Unspecified osteoarthritis, unspecified site; C61 Malignant neoplasm of prostate; E78.00 Pure hypercholesterolemia, unspecified; R00.0 Tachycardia, unspecified; Z87.39 Personal history of other diseases of the musculoskeletal system and connective tissue; Z88.8 Allergy status to other drugs, medicaments and biological substances; Z79.899 Other long term (current) drug therapy

== ENCOUNTER → 2020-11-27 | Outpatient (CLI) | payer OTHER, MEDICAID | LOC: M.PC 10:33 | PROVIDERS: ATTEND Anesthesiology Pain Medicine | DX: G89.29 Other chronic pain (principal); M25.572 Pain in left ankle and joints of left foot; M19.90 Unspecified osteoarthritis, unspecified site; E78.00 Pure hypercholesterolemia, unspecified; Z87.39 Personal history of other diseases of the musculoskeletal system and connective tissue ==

== ENCOUNTER → 2021-01-22 | Outpatient (CLI) | payer OTHER, MEDICAID | LOC: M.PC 09:47 | PROVIDERS: ATTEND Anesthesiology Pain Medicine | DX: M25.572 Pain in left ankle and joints of left foot (principal); M06.9 Rheumatoid arthritis, unspecified; M19.90 Unspecified osteoarthritis, unspecified site; E78.00 Pure hypercholesterolemia, unspecified; C61 Malignant neoplasm of prostate; Z79.891 Long term (current) use of opiate analgesic; Z79.899 Other long term (current) drug therapy ==

== ENCOUNTER → 2021-03-19 | Outpatient (CLI) | payer OTHER, MEDICAID | LOC: M.PC 10:03 | PROVIDERS: ATTEND Anesthesiology Pain Medicine | DX: M25.572 Pain in left ankle and joints of left foot (principal); M19.90 Unspecified osteoarthritis, unspecified site; E78.00 Pure hypercholesterolemia, unspecified ==

== ENCOUNTER → 2021-05-14 | Outpatient (CLI) | payer OTHER, MEDICAID | LOC: M.PC 10:17 | PROVIDERS: ATTEND Anesthesiology Pain Medicine | DX: M25.572 Pain in left ankle and joints of left foot (principal); M54.50 Low back pain, unspecified; M25.522 Pain in left elbow; C61 Malignant neoplasm of prostate; G89.29 Other chronic pain; I10 Essential (primary) hypertension; M19.90 Unspecified osteoarthritis, unspecified site; E78.00 Pure hypercholesterolemia, unspecified; Z79.899 Other long term (current) drug therapy ==

== ENCOUNTER → 2021-07-09 | Outpatient (CLI) | payer OTHER, MEDICAID | LOC: M.PC 10:25 | PROVIDERS: ATTEND Anesthesiology Pain Medicine | DX: G89.29 Other chronic pain (principal); M25.572 Pain in left ankle and joints of left foot; M54.50 Low back pain, unspecified; M25.529 Pain in unspecified elbow; M19.90 Unspecified osteoarthritis, unspecified site; E78.00 Pure hypercholesterolemia, unspecified; I10 Essential (primary) hypertension; Z88.0 Allergy status to penicillin; Z88.8 Allergy status to other drugs, medicaments and biological substances; Z79.899 Other long term (current) drug therapy ==

== ENCOUNTER → 2021-08-06 | Outpatient (CLI) | payer OTHER, MEDICAID | LOC: M.PC 10:14 | PROVIDERS: ATTEND Anesthesiology Pain Medicine | DX: M25.572 Pain in left ankle and joints of left foot (principal); M25.522 Pain in left elbow; M25.521 Pain in right elbow; M54.50 Low back pain, unspecified; E78.00 Pure hypercholesterolemia, unspecified; M19.90 Unspecified osteoarthritis, unspecified site; Z88.0 Allergy status to penicillin; Z88.8 Allergy status to other drugs, medicaments and biological substances; Z79.899 Other long term (current) drug therapy ==